=== PATIENT | male | born 1930 | race Caucasian/White ===

== ENCOUNTER 2017-02-20 12:07 | Observation (INO) | payer MEDICARE, BC ==
[2017-02-20] MEDS ORDERED: NS 0.9% 1000 ML* 1,000 ML IV ONE (14:00)
[2017-02-20 14:23] LABS: Hematocrit 35 % (42-52); Hemoglobin 11.5 g/dl (14.0-18.0); Mean Corpuscular HGB Conc 33 g/dl (31-36); Mean Corpuscular Hemoglobin 28 pg (27-31); Mean Corpuscular Volume 85 fL (80-94); Mean Platelet Volume 8 um3 (7.4-10.4); Red Blood Count 4.17 10^6/ul (4.0-5.4); Red Cell Distribution Width 14 % (10.5-15); White Blood Count 7.1 10^3/ul (3.5-10.8)
[2017-02-20 14:40] LABS: Albumin 3.8 g/dL (3.2-5.2); Calcium 8.9 mg/dL (8.6-10.3); EGFR African American 68.2 (>60); Globulin 3.2 g/dL (2-4); Magnesium 2.1 mg/dL (1.9-2.7); Potassium 4.7 mmol/L (3.5-5.0); Total Bilirubin 0.4 mg/dL (0.2-1.0); Troponin I 0.07 ng/mL (<0.04)
[2017-02-20] MEDS ORDERED: cefTRIAXone(*) 1 GM in NS 0.9% 50 ML* 50 ML IVPB ONE (14:48)
[2017-02-20] MEDS ORDERED: Aspirin TAB* 325 MG PO ONE (14:48)
[2017-02-20] MEDS ORDERED: Levofloxacin 500 MG IVPREMIX(* 500 MG/100 ML BAG IVPB ONE (15:00)
[2017-02-20 15:13] LABS: TSH (Thyroid Stimulating Horm) 3.27 mcIU/mL (0.34-5.60)
[2017-02-20 15:18] LABS: Urine Bacteria 1+ (Absent); Urine Bilirubin Negative (Negative); Urine Glucose Negative (Negative); Urine Nitrite Negative (Negative)
[2017-02-20] MEDS ORDERED: Omeprazole CAP* 20 MG PO PRN (16:15)
[2017-02-20] MEDS ORDERED: Dextrose 50% Syringe 50 ML* 25 GM/50 ML SYRINGE IV PUSH PRN (16:16)
[2017-02-20] MEDS ORDERED: Atorvastatin* 10 MG TAB PO SCH (18:00)
[2017-02-20] MEDS: Insulin LISPRO* 1 UNITS UNIT SUBCUT SCH (19:14)
[2017-02-20] MEDS: Gabapentin CAP(*) 100 MG PO SCH (21:32)
[2017-02-20] MEDS: Heparin VIAL(*) 5000 UNITS/ML VIAL (FIVE THOUSAND) SUBCUT SCH (21:33)
--- NOTE | 2017-02-21 03:19 | HP ---
CC: Álvaro Dixon MD * HISTORY AND PHYSICAL: DATE OF ADMISSION: 02/20/17 PRIMARY CARE PROVIDER: Álvaro Dixon MD ATTENDING PHYSICIAN: Mena Rothman DO * (dictated by Meena Adhikari NP) CHIEF COMPLAINT: Sudden onset of dizziness and feeling woozy. HISTORY OF PRESENT ILLNESS: Mr. Diaz is an 86-year-old male with past medical history significant for diabetes mellitus, myocardial infarction, hypertension, essential tremor and BPH who presented to the emergency room today after sudden onset of dizziness and feeling woozy. The patient [place] and felt like he may pass out, so he started to drive himself home when he decided he should stop at the emergency room due to his continuousness of feeling dizzy. The patient also reports that he saw Dr. Martell yesterday, who obtained a urine culture. He reports that he has a bladder infection and antibiotics were being called in to the pharmacy today. He denies any fevers, chills, chest pain, shortness of breath, any urinary symptoms such as dysuria. The patient presented to the emergency room for further evaluation of symptoms. While in the emergency room, the patient had an EKG showing a sinus rhythm at the rate of 58 and right bundle-branch block and PVC's. The patient had urinalysis suggestive of UTI. The patient's initial troponin was 0.07. He was noted to have an elevated creatinine of 1.28. This appears to be the patient' s baseline. Based on the patient's presentation and complaints of dizziness and findings of a urinary tract infection and elevated troponin, the hospitalists were asked to evaluate the patient for admission. PAST MEDICAL HISTORY: 1. Diabetes mellitus. 2. Myocardial infarction in 2013. 3. Hypertension. 4. Essential tremor. 5. Dysplastic nevus syndrome. 6. BPH. 7. History of broken shoulder. PAST SURGICAL HISTORY: 1. Status post amputation of right finger in 2015. 2. Status post exploratory laparotomies in 1991, 1993, and 1997. 3. Status post appendectomy in 1981. 4. Status post left total hip arthroplasty. 5. 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 HOME MEDICATIONS: Include: 1. Fish oil 1200 mg oral daily. 2. CoQ10 400 mg oral daily. 3. Multivitamin 1 tablet oral daily. 4. Nitro 0.4 mg sublingual every 5 minutes as needed for chest pain. 5. Vitamin B12 1000 mEq oral daily. 6. Vitamin B12 2000 IU daily. 7. Aspirin 81 mg oral daily. 8. Omeprazole 20 mg oral daily as needed for indigestion. 9. Gabapentin 200 mg oral twice daily. 10. Metformin 500 mg oral every evening. 11. Simvastatin 20 mg oral every evening. 12. Finasteride 10 mg oral daily. ALLERGIES: PENICILLIN. FAMILY HISTORY: The patient reports a brother with a history of coronary artery disease. He denies any family history of diabetes mellitus. The patient 's mother had a history of pancreatic cancer. In addition, a brother with a history of pancreatic cancer, a brother with bladder cancer and a brother with lung cancer. SOCIAL HISTORY: The patient is a former smoker, he quit smoking approximately 40 years and prior to that had approximately 20-year smoking history. The patient rarely drinks alcohol. He denies recreational drug use. He is . His niece, Winter Diaz, will be his surrogate decision maker in the event he is unable to make decisions for himself. Winter's phone numbers are, her home is [phone] and cell phone is [phone]. REVIEW OF SYSTEMS: I performed a 14-point review of systems. All the pertinent positives and negatives are mentioned in the history of present illness. The remaining of review of systems are negative. PHYSICAL EXAMINATION GENERAL APPEARANCE: The patient is alert, pleasant, appears to be in no acute distress. VITAL SIGNS: Temperature 99.0, heart rate 66, respiratory rate 19, O2 sat 98% on room air, blood pressure 118/71. HEENT: Normocephalic, atraumatic. Pupils are equal and reactive to light. Extraocular movements are intact. RESPIRATORY: There is no accessory muscle use and lungs are clear to auscultation bilateral. CARDIOVASCULAR: Regular rate and rhythm. S1 and S2 are present. There are no murmurs, rubs, or gallops heard. ABDOMEN: Soft, nontender, nondistended. There are bowel sounds present x4. EXTREMITIES: There is no lower extremity edema. DP and PT pulses are 2+ and symmetric. MUSCULOSKELETAL: There is no clubbing or cyanosis noted. The patient exhibits good strength in all extremities. NEUROLOGICAL: The patient is alert and oriented x4. Cranial nerves II through XII are grossly intact. The patient is noted to have a tremor in his hands. PSYCHOLOGICAL: The patient is calm and cooperative. SKIN: There are no rashes or abnormalities seen. DIAGNOSTIC STUDIES/LAB DATA: Sodium 139, potassium 4.7, chloride 104, CO2 31, BUN 23, creatinine 1.28, glucose 120. White blood cell count 7.1, hemoglobin 11.5, hematocrit 35, and platelet count 232,000. Troponin 0.07. TSH 3.27. Urinalysis significant for specific gravity of 1.003, blood 1+, leukocyte esterase 3+, wbc's 3+, rbc's 3+, bacteria 1+. EKG shows a sinus rhythm at the rate of 58 and right bundle-branch block and PVC 's. This EKG is similar to previous EKG compared to 12/10/15. IMPRESSION: Mr. Diaz is an 86-year-old male with past medical history significant for diabetes mellitus, hypertension, myocardial infarction, essential tremor, and benign prostatic hypertrophy, who presents to the emergency room with complaints of dizziness and feeling woozy and was found to have an elevated troponin and urinary tract infection. He will be admitted as an observation for elevated troponins, dizziness, and urinary tract infection. ASSESSMENT AND PLAN: 1. Dizziness. Unclear cause at this time. We will monitor the patient on telemetry. 2. Elevated troponins. The patient will be monitored on telemetry. We will trend his troponins. We will check a fasting lipid panel in the morning. The patient's SILVER score is 4. 3. Urinary tract infection. From a culture from February 19, the patient has enterococcus faecalis. He will be placed on Levaquin. 4. Chronic kidney disease, stage 3. The patient appears to be at baseline. 5. Hypertension. The patient has been hypertensive in the emergency room. He is not currently on antihypertensives. We will follow his blood pressures. If he continues to be hypertensive, we will start him on medications. 6. Benign prostatic hypertrophy. The patient will be continued on his home finasteride. 7. History of coronary artery disease. The patient will be continued on his simvastatin and aspirin. He is not currently on a beta do. 8. Fluids, electrolytes, and nutrition. The patient will be on a heart healthy diet. 9. Code status. Full code. 10. DVT prophylaxis. He is a high risk and will be placed on subcu heparin. 12. Disposition. Observation. We will rule out acute coronary syndrome and urinary tract infection. TIME SPENT: Time for this admission was approximately 60 minutes, greater than half of that was spent with the patient discussing medications, past medical history, events leading up to his arrival today, and performing a physical examination. The case has been reviewed with the attending, Dr. Rothman, who agrees with the plan of care. MEENA MARION, AUTUMN [id number]/[facility] #: [id number] JOSE
[2017-02-21 05:37] LABS: HDL Cholesterol 42.7 mg/dL
[2017-02-21] MEDS: Heparin VIAL(*) 5000 UNITS/ML VIAL (FIVE THOUSAND) SUBCUT SCH (06:07)
[2017-02-21] MEDS: Insulin LISPRO* 1 UNITS UNIT SUBCUT SCH ×2 (08:25→13:16)
[2017-02-21 08:29] LABS: Troponin I 0.12 ng/mL (<0.04)
[2017-02-21] MEDS ORDERED: Finasteride TAB* 5 MG PO SCH (09:00)
[2017-02-21] MEDS ORDERED: Cyanocobalamin TAB* 500 MCG PO SCH (09:00)
[2017-02-21] MEDS ORDERED: Aspirin Low Dose CHEW TAB* 81 MG PO SCH (09:00)
[2017-02-21] MEDS ORDERED: Multivitamins/Minerals TAB PO SCH (09:00)
[2017-02-21] MEDS: Gabapentin CAP(*) 100 MG PO SCH (09:28)
--- NOTE | 2017-02-21 09:37 | PN ---
Subjective Date of Service: 02/21/17 Interval History: Patient seen this morning. Feels well. No further symptoms of dizziness since arriving to the ED. Denies any chest pain or SOB. Was told by Dr. Martell that he was retaining urine at the last appointment and sample cultured growing Enterococcus >100K. No dysuria or increased frequency. Has been eating and drinking well here. States his previous NV presented with significant chest pain that woke him from sleep. Family History: Unchanged from Admission Social History: Unchanged from Admission Past Medical History: Unchanged from Admission Objective Active Medications: Aspirin (Aspirin Low Dose Tab*) 81 mg PO DAILY [facility] Atorvastatin Calcium (Lipitor*) 10 mg PO QPM [facility] Cyanocobalamin (Vitamin B12 Tab*) 1,000 mcg PO DAILY [facility] Dextrose (D50w Syringe 50 Ml*) 12.5 gm IV PUSH .FOR FS < 60 - SS PRN Finasteride (Proscar Tab*) 5 mg PO DAILY [facility] Gabapentin (Neurontin Cap(*)) 200 mg PO BID [facility] Heparin Sodium (Porcine) (Heparin Vial(*)) 5,000 units SUBCUT Q8HR [facility] Levofloxacin/Dextrose (Levaquin 250 Mg Ivpremx(*)) 250 mg in 50 mls @ 50 mls/ hr IVPB Q24H [facility] Insulin Human Lispro (Humalog*) 0 - 5 units SUBCUT AC [facility] Multivitamins/Minerals (Theragran/Minerals Tab*) 1 tab PO DAILY [facility] Omeprazole (Prilosec Cap*) 20 mg PO DAILY PRN Vital Signs 02/20/17 02/20/17 02/20/17 15:30 16:00 16:50 Temperature 98.1 F Pulse Rate 59 56 Respiratory 19 26 18 Rate Blood Pressure 181/71 172/64 172/78 (mmHg) O2 Sat by Pulse 97 97 Oximetry 02/21/17 02/21/17 02/21/17 04:00 04:16 05:00 Temperature 98.1 F Pulse Rate 51 Respiratory 25 16 14 Rate Blood Pressure 153/70 (mmHg) O2 Sat by Pulse 94 Oximetry 02/21/17 02/21/17 02/21/17 06:00 07:00 07:27 Temperature 97.9 F Pulse Rate 51 Respiratory 17 17 16 Rate Blood Pressure 157/70 (mmHg) O2 Sat by Pulse 95 Oximetry Oxygen Devices in Use Now: None Appearance: Elderly, M, laying in bed in NAD Eyes: No Scleral Icterus Ears/Nose/Mouth/Throat: Mucous Membranes Moist Neck: NL Appearance and Movements; NL JVP Respiratory: Symmetrical Chest Expansion and Respiratory Effort, Clear to Auscultation Cardiovascular: - - Bradycardic, mild ALDAIR Abdominal: NL Sounds; No Tenderness; No Distention Lymphatic: No Cervical Adenopathy Extremities: No Edema Skin: No Rash or Ulcers Neurological: Alert and Oriented x 3, - - tremor Result Diagrams: 02/20/17 13:37 02/20/17 13:37 Assess/Plan/Problems-Billing Assessment: Episode of lightheadedness in an 86 yo M found to have UTI and troponin elevation with a PMH of BPH, HTN, NV, bradycardia, tremor - Patient Problems (1) UTI (urinary tract infection) Current Visit: Yes Comment: Enterococcus > 100K on recent outpatient culture. No dysuria but was reportedly having urinary retention. Continue Levaquin for now with PCN allergy. (2) Elevated troponin Current Visit: Yes Comment: Peaked at 0.13. No chest pain. No significant events on tele other than known bradycardia. May be demand mediated from bradycaria vs UTI. Dr. Neri to see. (3) Light headedness Current Visit: Yes Comment: ?due to UTI vs bradycardia. Symptoms seemed to have resolved. Will ambulate the patient today. (4) BPH (benign prostatic hyperplasia) Current Visit: Yes Comment: Continue finasteride (5) CAD (coronary artery disease) Current Visit: No Comment: Troponin elevation as above, for now continue Aspirin and Atorvastatin. BPs trending back down (6) CKD (chronic kidney disease) stage 3, GFR 30-59 ml/min Current Visit: Yes Comment: Creatinine at baseline (7) Type 2 diabetes mellitus Current Visit: No Comment: Continue Lispro SS. (8) DVT prophylaxis Current Visit: No Status: Acute Code(s): [id number] - SNOMED Code(s): 420801666 Comment: SQ heparin.
--- NOTE | 2017-02-21 11:19 | CONSULT ---
Subjective Date of Service: 02/21/17 Interval History: Date of admission 02/20/2017 Consult 02/21/2017 Primary Care Physician: Álvaro Dixon MD Eating Disorder Specialist: Dr. Grover Service: Hospitalist CC: Lightheadedness, presyncope Reason for consult: Abnormal troponin HPI: Mr. Diaz is an 86 year old man with a history of CAD s/p [place], known trifascicular with symptomatic bradycardia in 2015 at which time propanolol ( used for tremor) was stopped at that time. He was being followed by Dr. Grover with the anticipation that he would eventually require a pacemaker. Patient's in November. He actually had an episode of self-limited lightheadedness shortly after that probably in early December. He went to get something to eat and attributed the improvement of symptoms to food. He neglected to tell Dr. Grover this at an appointment earlier this month. He was at the [facility] yesterday standing in line when he had the sudden onset of "woozy" and lightheaded. There was no spinning sensation. He felt like he might pass out and had to sit down. There was no chest pain. He does not recall a change in breathing. Because he felt food had helped the symptoms last month he got in his car to drive while feeling extremely lightheaded and was driving to [employer] to get something to eat. His symptoms became so bad that he instead drove up to [facility]. This episode was much more severe than the one about 2 months ago. By the time he was connected to our monitoring his symptoms had resolved and did not return. He thinks the entire episode lasted 20 minutes or so. EKG here showed sinus bradycardia 58 bpm, RBBB with a LAFB and 1 AVB with a PVC. Telemetry overnight showed non-conducted p waves a times. EKG today showed sinus bradycardia 56 bpm, similar EKG except right precordial leads looks like they were placed in a different position. He has had no syncope. He had a urinalysis at Dr. Martell's office yesterday and was to start antibiotics for a UTI once cultures obtained. He denies any urinary symptoms. There is no fever or leukocytosis. His lab work showed a normal glucose and a creatinine was stable not suggestive of significant dehydration. His is receiving antibiotics for UTI. PAST MEDICAL HISTORY: 1. Diabetes mellitus. 2. Myocardial infarction in 2013. 3. Hypertension. 4. Essential tremor. 5. Dysplastic nevus syndrome. 6. BPH. 7. History of broken shoulder. PAST SURGICAL HISTORY: 1. Status post amputation of right finger in 2015. 2. Status post exploratory laparotomies in 1991, 1993, and 1997. 3. Status post appendectomy in 1981. 4. Status post left total hip arthroplasty. 5. 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 ALLERGIES: PENICILLIN. FAMILY HISTORY: The patient reports a brother with a history of coronary artery disease. He denies any family history of diabetes mellitus. The patient's mother had a history of pancreatic cancer. In addition, a brother with a history of pancreatic cancer, a brother with bladder cancer and a brother with lung cancer. SOCIAL HISTORY: The patient is a former smoker, he quit smoking approximately 40 years and prior to that had approximately 20-year smoking history. The patient rarely drinks alcohol. He denies recreational drug use. He is . His niece, Winter Diaz, will be his surrogate decision maker in the event he is unable to make decisions for himself. Winter's phone numbers are, her home is [phone] and cell phone is [phone]. Medications Active Medications: Aspirin (Aspirin Low Dose Tab*) 81 mg PO DAILY [facility] Last Admin: 02/21/17 09:28 Dose: 81 mg Atorvastatin Calcium (Lipitor*) 10 mg PO QPM [facility] Last Admin: 02/20/17 18:10 Dose: 10 mg Cyanocobalamin (Vitamin B12 Tab*) 1,000 mcg PO DAILY [facility] Last Admin: 02/21/17 09:28 Dose: 1,000 mcg Dextrose (D50w Syringe 50 Ml*) 12.5 gm IV PUSH .FOR FS < 60 - SS PRN PRN Reason: FS < 60 Finasteride (Proscar Tab*) 5 mg PO DAILY [facility] Last Admin: 02/21/17 09:28 Dose: 5 mg Gabapentin (Neurontin Cap(*)) 200 mg PO BID [facility] Last Admin: 02/21/17 09:28 Dose: 200 mg Heparin Sodium (Porcine) (Heparin Vial(*)) 5,000 units SUBCUT Q8HR [facility] Last Admin: 02/21/17 06:07 Dose: 5,000 units Levofloxacin/Dextrose (Levaquin 250 Mg Ivpremx(*)) 250 mg in 50 mls @ 50 mls/ hr IVPB Q24H [facility] Insulin Human Lispro (Humalog*) 0 - 5 units SUBCUT AC [facility] PRN Reason: Protocol Last Admin: 02/21/17 08:25 Dose: Not Given Multivitamins/Minerals (Theragran/Minerals Tab*) 1 tab PO DAILY [facility] Last Admin: 02/21/17 09:28 Dose: 1 tab Omeprazole (Prilosec Cap*) 20 mg PO DAILY PRN PRN Reason: INDIGESTION Home Medications: Aspirin Low Dose CHEW TAB* [Aspirin Low Dose TAB*] 81 mg PO DAILY 01/09/16 [ History Confirmed 02/20/17] Cholecalciferol [Vitamin D3] 2,000 unit PO DAILY 01/09/16 [History Confirmed ] Cyanocobalamin TAB* [Vitamin B12 TAB*] 1,000 mcg PO DAILY 01/09/16 [History Confirmed 02/20/17] Gabapentin CAP(*) [Neurontin 100 mg CAP(*)] 200 mg PO BID 01/09/16 [History Confirmed 02/20/17] Omeprazole CAP* [Prilosec CAP* 20 MG] 20 mg PO DAILY PRN 01/09/16 [History Confirmed 02/20/17] Simvastatin TAB(NF) [Zocor 20 MG (NF)] 20 mg PO QPM 01/09/16 [History Confirmed 02/20/17] metFORMIN* [Glucophage 500 MG TAB *] 500 mg PO QPM 01/09/16 [History Confirmed 02/20/17] Coenzyme Q10 (Ubidecarenone) [Co Q-10] 400 mg PO DAILY 02/20/17 [History Confirmed 02/20/17] Finasteride TAB* [Proscar TAB*] 5 mg PO DAILY 02/20/17 [History Confirmed ] Multivitamins/Minerals TAB* [Theragran/minerals TAB*] 1 tab PO DAILY 02/20/17 [ History Confirmed 02/20/17] Nitroglycerin TAB 0.4 MG* 0.4 mg SL Q5M PRN 02/20/17 [History Confirmed 02/20/17 ] [place]-3 Fatty Acids (Nf) [Fish Oil (NF)] 1,200 mg PO DAILY 02/20/17 [History Confirmed 02/20/17] Review of Systems - Measurements Intake and Output: Intake and Output Last 24 Hours 02/19/17 02/20/17 02/21/17 02/22/17 06:59 06:59 06:59 06:59 Intake Total 325 590 Output Total 1250 600 Balance -925 -10 Weight 174 lb Intake: IVPB 125 Oral 200 590 Output: Urine 1250 600 Other: # Bowel Movements 0 - Review of Systems Constitutional Symptoms: Negative: Weight Gain, Weight Loss, Fatigue, Fever, Unexplained Falls Dermatology: Negative: Rash, Skin Lesions HEENT: Negative: Change in Hearing, Vertigo Eyes: Negative: Change in Vision, Double Vision Thyroid: Negative: Cold Intolerance, Heat Intolerance, Tremor, Frequent Defecation, Constipation, Palpitations, Primary Hypothyroidism, Primary Hyperthyroidism, Weight Loss, Weight Gain Pulmonary: Negative: Cough, Sputum, Hemoptysis, Wheezing, Respiratory Distress Cardiology: Positive: Faintness Negative: Chest Pain, Shortness of Breath, Palpitations, Swelling of Ankles, Peripheral Vascular Dis, Edema, Syncope, Claudication, Paroxysmal Nocturnal Dyspnea, Orthopnea Gastroenterology: Negative: Abdominal Pain, Nausea, Vomiting, Anorexia, Indigestion, Difficulty Swallowing, Heartburn, Constipation, Diarrhea, Haematemesis, Melena Genital - Urinary: Negative: Dysuria, Hematuria Musculoskeletal: Negative: Joint Pain, Joint Stiffness, Arthritis, Osteoporosis, Low Back Pain , Sciatica, Joint Deformities, Kyphoscoliosis, Other Endocrinology: Negative: Thyroid Problems, Obesity, Diabetes, Calluses, Polydipsia, Polyuria Hematologic/Lymphatic: Negative: Anemia, Easy Brusing, Hx Leukemia, Hx Lymphoma Neurology: Positive: Dizziness Negative: Headaches, Migraines, Change in Vision, Diplopia, Change in Balancing, Change in Coordination, Change in Memory, Change in Speech, Change in Sphincter Function, Change in Walking, Hx of Stroke\\TIA, Hx Seizures Psychiatry: Negative: Depressed Mood, Unusual Fatigue, Unusual Anxiety Allergic/Immunologic: Negative: Hx HIV, Immunocompromise Review of Systems Statement: All other review of systems negative, unless stated above. Objective Vital Signs: Temp Pulse Resp BP Pulse Ox 97.9 F 51 18 157/70 95 02/21/17 07:27 02/21/17 07:27 02/21/17 09:28 02/21/17 07:27 02/21/17 07:27 Oxygen Devices in Use Now: None Appearance: nad, pleasant Ears/Nose/Mouth/Throat: Clear Oropharnyx Neck: NL Appearance and Movements; NL JVP Respiratory: Symmetrical Chest Expansion and Respiratory Effort, Clear to Auscultation Cardiovascular: NL Sounds; No Murmurs; No JVD, RRR, No Edema Abdominal: NL Sounds; No Tenderness; No Distention Extremities: No Edema Skin: No Rash or Ulcers Neurological: Alert and Oriented x 3, - - + tremor Laboratory Results: 02/20/17 13:37 02/20/17 13:37 Total Bilirubin 0.40 mg/dL (0.2-1.0) 02/20/17 13:37 AST 27 U/L (13-39) 02/20/17 13:37 ALT 21 U/L (7-52) 02/20/17 13:37 Alkaline Phosphatase 68 U/L (34-104) 02/20/17 13:37 Total Protein 7.0 g/dL (6.4-8.9) 02/20/17 13:37 Albumin 3.8 g/dL (3.2-5.2) 02/20/17 13:37 Globulin 3.2 g/dL (2-4) 02/20/17 13:37 Albumin/Globulin Ratio 1.2 (1-3) 02/20/17 13:37 Triglycerides 93 mg/dL 02/21/17 04:56 Cholesterol 124 mg/dL 02/21/17 04:56 LDL Cholesterol 63 mg/dL 02/21/17 04:56 HDL Cholesterol 42.7 mg/dL 02/21/17 04:56 TSH 3.27 mcIU/mL (0.34-5.60) 02/20/17 13:37 02/20/17 02/20/17 02/20/17 13:37 16:49 19:43 Troponin I 0.07 H* 0.09 H* 0.10 H* 02/20/17 02/21/17 22:42 04:56 Troponin I 0.13 H* 0.12 H* Diagnostic Imaging: Echocardiogram - (01/31/2014 - Normal LV function EF 68% Mild AR and MR Trace TR) Exercise Nuclear Stress Test - (03/20/2005 - Exercised for 10 min Normal perfusion Normal LV function EF 72% TID 0.83) Holter Monitor - (01/08/2016 - NSR HR down to 35 bpm at night Longest pause was 3 sec at night. No significant bradycardia while awake, Lexiscan Stress Test - (02/02/2014 - Small/moderate partial thickness infarct of inferior wall. Normal LV function EF 64% TID: 0.97) Assessment/Plan Mr. 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 Telemetry overnight with non-conducted p waves. Asymtpomatic now. No AV gloria agents. Being treated for UTI I think unlikely (directly) related to current event. No syncope. Mildly elevated troponin very likely due to coronary underperfusion during a self-limited symptomatic bradycardia episode. Patient requests to go home at this time. Episode very likely related to symptomatic bradycardia given his history. Permanent dual chamber cardiac pacemaker recommended. Patient agrees to not drive for a short period of time until the pacemaker is placed and he is recovered. He is absolutely not to drive until pacemaker is placed and he and niece at bedside are agreeable to this and she will drive him for now. We discussed situations in which he should call 911 for. Will arrange pacemaker 02/25/[address] Kary Cheema as an outpatient. May restart propanolol afterwards. Thank you for allowing me to participate in the cardiovascular care of this patient. Please do not hesitate to contact me with questions or concerns.
[2017-02-21 11:53] VITALS: BP 158/92
[2017-02-21] MEDS ORDERED: Levofloxacin 500 MG IVPREMIX(* 500 MG/100 ML BAG IVPB SCH (15:00)
[2017-02-21] MEDS ORDERED: Levofloxacin 250 MG IVPREMX(*) 250 MG/50 ML BAG IVPB SCH (17:00)
--- NOTE | 2017-02-22 09:55 | DS ---
CC: Álvaro Dixon MD; Dr. Saulo Grover; Dr. Kary Cheema DISCHARGE SUMMARY: DATE OF ADMISSION: 02/20/17 DATE OF DISCHARGE: 02/21/17 PRIMARY CARE PROVIDER: Álvaro Dixon MD. PRINCIPAL DISCHARGE DIAGNOSES: 1. Lightheadedness/presyncope. 2. Bradycardia. 3. Bacteriuria. SECONDARY DIAGNOSES: 1. Diabetes. 2. History of myocardial infarction. 3. Hypertension. 4. Tremor. 5. Benign prostatic hypertrophy. DISCHARGE MEDICATION REGIMEN: 1. Ciprofloxacin 500 mg by mouth 2 times daily. 2. Finasteride 5 mg by mouth daily. 3. Simvastatin on hold until ciprofloxacin is completed. 4. Metformin 500 mg by mouth nightly. 5. Gabapentin 200 mg by mouth 2 times daily. 6. Omeprazole by mouth daily as needed for reflux. 7. Aspirin 81 mg by mouth daily. 8. Vitamin D3 2000 units by mouth daily. 9. Vitamin B12 1000 mcg by mouth daily. 10. Nitroglycerin 0.4 mg sublingual every 5 minutes as needed for chest pain. 11. Multivitamin one tablet by mouth daily. 12. Coenzyme-Q 400 mg by mouth daily. 13. [place]-3 fatty acids 1200 mg by mouth daily. CONSULTANTS DURING HOSPITALIZATION: Rk Neri DO, Cardiology. HISTORY OF PRESENT ILLNESS AND HOSPITAL SUMMARY: Please see the full history and physical by Katherin Antonio NP, for full details. Briefly, Mr. Diaz is an 78-year-old male with a past medical history as above, who presented to the hospital after he had an episode of lightheadedness a nd presyncope while standing in line at the [employer]. He had no associated chest pain or shortness of br eath. In the emergency department, he had an initial EKG that shows sinus bradycardia, right bundle branch block and left anterior fascicular block. It was not new. He was noted to have mildly elev ated troponin of 0.07, which peaked at 0.13. Throughout the hospitalization, he remained asymptomat ic as far as chest pain went and his lightheadedness resolved in the emergency department and did no t return. The patient recently was diagnosed with urinary tract infection by Urology and had urine culture growing Enterococcus faecalis on 02/19/17 and had not yet started antibiotics. Due to the troponin elevation and bradycardia and the patient's history, Dr. Rk Neri of Cardiol [facility] was consulted. He felt that the patient's presyncopal symptoms may have been due to his bradyca rdia and recommends that the patient sees Cardiology this upcoming week for consideration of pacemak er placement. I agree with Dr. Neri's assessment. I am unclear if the patient has an active urin kartik tract infection. However, it seems that he was having some urinary retention based on his repor t of his recent Urology appointment. So, we will proceed to treat the patient's infection with cipr ofloxacin as he has a PENICILLIN allergy. The patient was instructed to hold the simvastatin while on the fluoroquinolone and can resume it once the antibiotic course was completed. TIME SPENT: Total time spent on this discharge was 60 minutes. This is a summary of the hospitalization, please see the full medical record for further details. [id number]/[facility] #: [id number]
== END 2017-02-21 14:40 | disposition home or self-care (01) ==
LOC: ED 12:07 → MEDTELE 15:00
PROVIDERS: ADMIT Hospitalist; ATTEND Hospitalist
DX: R55 Syncope and collapse (principal); R42 Dizziness and giddiness; R00.1 Bradycardia, unspecified; R82.71 Bacteriuria; E11.9 Type 2 diabetes mellitus without complications; N40.0 Benign prostatic hyperplasia without lower urinary tract symptoms; I25.2 Old myocardial infarction; R25.1 Tremor, unspecified; I12.9 Hypertensive chronic kidney disease with stage 1 through stage 4 chronic kidney disease, or unspecified chronic kidney disease; N18.3 Chronic kidney disease, stage 3 (moderate); R74.8 Abnormal levels of other serum enzymes; Z79.84 Long term (current) use of oral hypoglycemic drugs; Z79.899 Other long term (current) drug therapy; Z87.891 Personal history of nicotine dependence; I45.2 Bifascicular block
CPT/HCPCS: 36415; 80053; 80061; 81003; 81015; 83036; 83605; 83735; 84443; 84484; 85025; 87086; 93005; 96365; 96372; 96375; 99283; A9270-GY; G0378; J0696; J1644; J1956

== ENCOUNTER 2017-02-26 07:02 | Observation (INO) | payer MEDICARE, BC ==
[2017-02-26] MEDS ORDERED: Clindamycin 900 MG IVPREMIX(* 900 MG/50 ML SDV IV ONE (08:00)
[2017-02-26] MEDS ORDERED: Diazepam TAB(*) 5 MG ONE (08:12)
[2017-02-26] MEDS ORDERED: fentaNYL* 50 MCG/ML 2 ML VIAL (100 MCG VIAL) ONE (08:18)
[2017-02-26] MEDS ORDERED: Lidocaine 1% INJ* 10 MG/ML 30 ML SDV ONE ×2 (08:19→09:14)
[2017-02-26] MEDS ORDERED: Midazolam* 1 MG/ML 5 ML VIAL (5 MG) ONE (08:19)
[2017-02-26] MEDS ORDERED: Iohexol 300 (CONTRAST) 10 ML SDV ONE (08:45)
[2017-02-26] MEDS ORDERED: Acetaminophen TAB* 325 MG PO PRN (10:16)
[2017-02-26] MEDS ORDERED: Nitroglycerin TAB 0.4 MG* 0.4 MG TAB SL PRN (11:00)
[2017-02-26] MEDS ORDERED: Omeprazole CAP* 20 MG PO PRN (11:00)
[2017-02-26] MEDS: Ciprofloxacin TAB* 500 MG PO SCH ×2 (11:48→20:44)
[2017-02-26] MEDS: Gabapentin CAP(*) 100 MG PO SCH ×2 (11:48→20:41)
[2017-02-26] MEDS: Aspirin Low Dose CHEW TAB* 81 MG PO SCH (11:48)
[2017-02-26] MEDS: Finasteride TAB* 5 MG PO SCH (11:48)
--- NOTE | 2017-02-26 12:46 | RAD ---
INDICATION: Status post device implant. COMPARISON: Comparison is made with a prior chest x-ray study from April 09, 2016. TECHNIQUE: A portable view of the chest was obtained. FINDINGS: The patient is status post placement of a transvenous dual-chamber cardiac pacemaker. The heart is within normal limits in size. The lungs are clear. No pneumothorax is seen. There is mild blunting of the right costophrenic angle which is unchanged suggestive of pleural thickening. IMPRESSION: STATUS POST CARDIAC PACEMAKER PLACEMENT, NO EVIDENCE FOR ACUTE FINDING.
[2017-02-26] MEDS ORDERED: Atorvastatin* 10 MG TAB PO SCH (18:00)
[2017-02-26] MEDS ORDERED: metFORMIN* 500 MG TAB PO SCH (18:00)
--- NOTE | 2017-02-27 05:46 | OP ---
CC: Saulo Grover MD; Álvaro Dixon MD * PACEMAKER IMPLANTATION: DATE OF OPERATION: 02/26/17 - ROOM #[id number] DATE OF : [birth year] SURGEON: Kary Cheema MD ANESTHESIA: MAC. PRE-OP DIAGNOSIS: Symptomatic sick sinus syndrome. POST-OP DIAGNOSIS: Symptomatic sick sinus syndrome. OPERATIVE PROCEDURE: Pacemaker implantation. ESTIMATED BLOOD LOSS: Less than 5 mL. COMPLICATIONS: None. INDICATIONS: The indications, risks and benefits of the procedure have been discussed with the patient, with Dr. Neri, I again reviewed these with the patient and his niece on the morning of the procedure. He was amenable to proceeding. DESCRIPTION OF PROCEDURE: The patient is right-handed and left subclavian fossa was prepped and draped in the usual sterile fashion and a time-out procedure was called. The patient received 10 cc of radiopaque dye in the left upper extremity outlying the left axillary and left subclavian vein. Following this, the patient received a total of 20 cc of 1% lidocaine for local anesthesia and additionally received 4 mg of Versed and 50 mcg of Fentanyl for sedation. Following the lidocaine, using a 10-blade knife, a 2.5 cm incision was made in the left subclavian fossa and using Bovie and blunt dissection was extended to the level of the pectoralis muscle. After additional lidocaine was infused inferiorly and medially, using blunt dissection, a small pocket was made. Using a modified Seldinger technique, the left subclavian vein was cannulated and using fluoroscopic guidance, the guidewire was advanced to the superior vena cava. This procedure was repeated with a second wire. Using an introducer technique, the right ventricular lead was guided into the right ventricular apex. I went in the coronary sinus initially, the first location had poor thresholds and active fixation lead was retracted and repositioned, actively fixed and placed with good pacing and sensing thresholds. Using a second guidewire and an introducer technique, the atrial lead was guided into the right atrial appendage actively fixed in place with good pacing and sensing thresholds. The leads were then advanced carefully as there was a lot of redundant tortuosity to the superior vena cava. The leads were then sutured to the pocket using 0 silk suture and the leads and pocket were copiously irrigated with normal saline. The leads were then attached to the generator. The generator was placed in the pocket and the incision was closed using 2 layers of absorbable suture, 2-0 followed by 4- 0 followed by sonali and an external dressing. FINDINGS: The system is an MRI compatible system. The device is a MedLEYIO model A2DR01, serial number [id number]. The atrial lead is a Medtronic model 5076-52, serial number [id number], P waves were sensed at 3.6 millivolts, the atrial lead impedance of 602 ohms and the atrial pacing threshold of 1.2 volts at 0.5 milliseconds. The ventricular lead is a Medtronic model 5076- 58 serial number [id number] with R-waves sensed at 8.2 millivolts and ventricular lead impedance of 725 ohms and the ventricular pacing threshold of 0.3 volts at 0.5 milliseconds. The patient was hemodynamically stable throughout the procedure. There were no complications during the procedure and the patient was stable during recovery and on transfer to the floor. [id number]/[facility] #: [id number] JOSE
[2017-02-27] MEDS: Gabapentin CAP(*) 100 MG PO SCH (09:07)
[2017-02-27] MEDS: Finasteride TAB* 5 MG PO SCH (09:08)
[2017-02-27] MEDS: Aspirin Low Dose CHEW TAB* 81 MG PO SCH (09:09)
[2017-02-27] MEDS: Ciprofloxacin TAB* 500 MG PO SCH (09:10)
[2017-02-27 12:06] VITALS: BP 157/73
--- NOTE | 2017-02-27 13:43 | RAD ---
Indication: Pacemaker placement. 2 views of the chest including dual energy PA views demonstrate no mediastinal shift. Pacemaker leads are in place. No pneumothorax is noted. No pleural fluid is identified. IMPRESSION: Pacemaker leads are in place. No pneumothorax is noted. Minimal basilar atelectasis is present.
--- NOTE | 2017-03-19 12:16 | DS ---
CC: Dr. Saulo Grover; Dr. Álvaro Dixon DISCHARGE SUMMARY: DATE OF ADMISSION: 02/26/17 DATE OF DISCHARGE: 02/27/17 HISTORY OF PRESENT ILLNESS: Please see Dr. Neri's recent consultation note from late January. The [place] huitron had become near syncopal at the [facility] and had another similar episode a month ago. He drove hi mself to the emergency department and was found to have nonconducted P waves and bradycardia. He wa s stabilized and discharged and brought back in for a dual-chamber pacemaker implantation. His beta blockers (used for tremor) have been held. The patient underwent implantation of an MRI compatible dual-chamber pacemaker 02/26/17 (Medtronic) without complications. The next day, the patient felt well, had no complaints of dizziness and moisés ed any shortness of breath, chest pain or exercise intolerance. Chest x-rays from 02/26 and 02/27 showed no evidence of pneumothorax and good lead placement. Pacemaker interrogation on the day of discharge, 02/27/17, confirmed his Medtronic device (model A2D R01). He was programmed in AAIR/DDDR with a low rate of 60 beats per minute. At interrogation, P w aves were sensed at 2.9 millivolts with an atrial lead impedance of 361 ohms and a ventricular pacin g threshold of 0.75 volts at 0.4 milliseconds. R waves are sensed at 7.6 millivolts with a ventricu lar impedance of 532 ohms and a ventricular pacing threshold of 0.5 volts at 0.4 milliseconds. Prior to that in DDD mode, he was atrially paced 85% of the time and ventricularly paced 83% of the time. DISCHARGE MEDICATIONS: The patient was discharged on: 1. Clindamycin 150 mg t.i.d. 2. Tylenol p.r.n. 3. Omeprazole 20 mg a day. 4. Neurontin 200 mg b.i.d. 5. Metformin 500 mg q.h.s. 6. Vitamin B12 at 1000 mg a day. 7. Vitamin D3 at 2000 mg a day. 8. Aspirin 81 mg a day. 9. [place]-3 fish oil 1200 mg b.i.d. 10. Coenzyme Q 400 mg a day. 11. Multi-Glenis. 12. Sublingual nitroglycerin. 13. Finasteride 5 mg a day. 14. Simvastatin 20 mg a day. 15. Cinnamon. DISCHARGE INSTRUCTIONS: He was provided with written and verbal instructions for care of his pacema ker and arrangements were made for him to follow up in 1 week's time for a wound check. PROBLEM LIST/PAST MEDICAL HISTORY: Includes, 1. High-degree heart block with intermittent second-degree heart block in the past. 2. Sinus bradycardia. 3. Dyslipidemia. 4. Diabetes. 5. Right bundle-branch block, left anterior fascicular block. [id number]/[facility] #: [id number]
== END 2017-02-27 16:17 | disposition home or self-care (01) ==
LOC: CHICATH 07:02 → MEDTELE 10:16
PROVIDERS: ADMIT Specialist; ATTEND Specialist
DX: I49.5 Sick sinus syndrome (principal); Z79.82 Long term (current) use of aspirin; E11.9 Type 2 diabetes mellitus without complications; Z79.84 Long term (current) use of oral hypoglycemic drugs; I45.10 Unspecified right bundle-branch block; R94.31 Abnormal electrocardiogram [ECG] [EKG]; I25.10 Atherosclerotic heart disease of native coronary artery without angina pectoris; I25.2 Old myocardial infarction; I10 Essential (primary) hypertension; Z87.891 Personal history of nicotine dependence
CPT/HCPCS: 33208; 71010; 71020; 93005; 99156; 99157; A9270-GY; C1785; C1898; G0378; J2001; J2250; J3010; Q9967

== ENCOUNTER 2017-04-07 20:59 | Observation (INO) | payer BC, MEDICARE ==
[2017-04-07 21:47] LABS: Hematocrit 33 % (42-52); Hemoglobin 10.9 g/dl (14.0-18.0); Mean Corpuscular HGB Conc 33 g/dl (31-36); Mean Corpuscular Hemoglobin 27 pg (27-31); Mean Corpuscular Volume 82 fL (80-94); Mean Platelet Volume 8 um3 (7.4-10.4); Red Blood Count 4.09 10^6/ul (4.0-5.4); Red Cell Distribution Width 17 % (10.5-15); White Blood Count 6.5 10^3/ul (3.5-10.8)
--- NOTE | 2017-04-07 21:53 | RAD ---
INDICATION: Chest pain COMPARISON: Chest x-ray 4 2016 TECHNIQUE: An AP portable view obtained at 2151 hours is submitted. FINDINGS: Bones/Soft Tissues: There are no acute bony findings. There is a left-sided cardiac pacemaker Cardiomediastinal: The cardiomediastinal silhouette is normal. Lungs: There are no infiltrates. There is mild hyperinflation. Pleura: There are no pleural effusions. Other: None IMPRESSION: CARDIAC PACEMAKER. NO ACTIVE DISEASE
[2017-04-07] MEDS: NS 0.9% 1000 ML* 1,000 ML IV SCH (21:56)
[2017-04-07 22:20] LABS: BUN/Creatinine Ratio 21.6 (8-20); C Reactive Protein 1.15 mg/L (< 5.00); EGFR Non-African American 48.2 (>60); Globulin 2.8 g/dL (2-4); Magnesium 2.1 mg/dL (1.9-2.7); Potassium 4.5 mmol/L (3.5-5.0); Total Bilirubin 0.5 mg/dL (0.2-1.0); Total Protein 6.8 g/dL (6.4-8.9); Troponin I 0.06 ng/mL (<0.04)
[2017-04-07 22:31] LABS: TSH (Thyroid Stimulating Horm) 2.45 mcIU/mL (0.34-5.60)
[2017-04-07] MEDS ORDERED: Iodixanol* (CONTRAST) 320 MG/ML 100 ML SDV IV ONE (23:09)
[2017-04-08 01:53] LABS: Urine Bacteria 1+ (Absent); Urine Bilirubin Negative (Negative); Urine Glucose Negative (Negative); Urine Nitrite Negative (Negative)
--- NOTE | 2017-04-08 02:59 | HP ---
H&P (Free Text) History and Physical: PCP: Akil Dixon MD Date/Time: 04/08/2017 0345 CC: spinning dizziness HPI: Mr Diaz is an 86YO male who underwent MRI compatible dual chamber pacer placement 02/26/2017 for similar symptoms after being found to have episodes of non-conducted P-waves and 2nd degree AV block. He has been doing well up until Thursday after eating breakfast at [email or web address] when he suddenly developed spinning dizziness that gradually spontaneously resolved over an hour. This was associated with SOB, but no chest pain, N/V, sweats, palpitations, F/C, cough, congestion, or other issues. He was at Dr Grover's office yesterday where a cad technician performed a pacer check informing him it was working well. He informed the tech of his symptom and an appointment to see Dr Grover was made for today at noon. He presents as he was advised to come to the ED for dizziness , chest pain, SOB, etc. Tonight he began experiencing sharp shooting non- exertional L chest pains prompting him to present. Additionally, he states that yesterday AM he developed shortness of breath while working in his garden without other associated symptoms. While in the ED, his HR was seen to drop into the mid-50s despite report his pacer was set at 60. Family stated that the monitor had dropped as low as 42 bpm. PMedHx DM2 CAD/IL COPD bradycardia s/p pacer 02/26/2017 nephrolithiasis cholelithiasis HTN dysplastic nevus syndrome essential tremor BPH Ambulatory Orders Aspirin Low Dose CHEW TAB* [Aspirin Low Dose TAB*] 81 mg PO DAILY 01/09/16 Cholecalciferol [Vitamin D3] 2,000 unit PO DAILY 01/09/16 Cyanocobalamin TAB* [Vitamin B12 TAB*] 1,000 mcg PO DAILY 01/09/16 Gabapentin CAP(*) [Neurontin 100 mg CAP(*)] 200 mg PO BID 01/09/16 Omeprazole CAP* [Prilosec CAP* 20 MG] 20 mg PO DAILY PRN 01/09/16 metFORMIN* [Glucophage 500 MG TAB *] 500 mg PO QPM 01/09/16 Coenzyme Q10 (Ubidecarenone) [Co Q-10] 400 mg PO DAILY 02/20/17 Finasteride TAB* [Proscar TAB*] 5 mg PO DAILY 02/20/17 Multivitamins/Minerals TAB* [Theragran/minerals TAB*] 1 tab PO DAILY 02/20/17 Nitroglycerin TAB 0.4 MG* 0.4 mg SL Q5M PRN 02/20/17 [place]-3 Fatty Acids (Nf) [Fish Oil (NF)] 1,200 mg PO BID 02/20/17 Simvastatin TAB(NF) [Zocor 20 MG (NF)] 20 mg PO QPM #0 02/21/17 Cinnamon 500 mg PO DAILY 02/25/17 Acetaminophen TAB* [Tylenol TAB*] 650 mg PO Q4H PRN #0 tab 02/27/17 Meloxicam [Mobic] 15 mg PO DAILY 04/07/17 Allergies Penicillins [PCN] Allergy (Verified 04/07/17 21:11) Unknown Reaction Details PSurgHx pacer placement R distal phalanx amputation exploratory laparotomies x3 appendectomy L GIOVANNI acetabular FX repair SocHx: former smoker quit ~40 years ago w/ ~20PYHX, rare alcohol, no recreational drugs; , lives alone FamHx: positive for CAD, HTN, lung CA, bladder CA, & pancreatic CA ROS: as above, otherwise reviewed and all were negative vitals: Vital Signs Temp 37.1 C 04/08/17 07:43 Pulse 58 04/08/17 07:43 Resp 16 04/08/17 07:43 BP 153/81 04/08/17 07:43 Pulse Ox 96 04/08/17 07:43 Intake & Output 04/07/17 04/07/17 04/08/17 11:59 23:59 11:59 Intake Total 1000 0 Balance 1000 0 Weight 74.843 kg 77.111 kg Intake: IV Fluids 1000 Oral 0 Other: # Bowel Movements 0 # Voids 0 Constitutional: NAD, normally developed, well-nourished elderly white male HEENM: atraumatic; sclera/conjunctiva: non-icteric/clear; hearing: clinically intact; oropharynx: clear, mucosa moist Neck: soft tissue: non-tender; thyroid: normal Pulmonary: clear to auscultation bilaterally, good aeration, no accessory muscle use CV: RR/RR, normal S1S2, no carotid bruit, no jugular venous distention, 2+ B DP/ PT, no edema Abdominal: soft, non-distended, non-tender, no rebound/guarding/rigidity, normoactive bowel sounds, no hepatosplenomegaly or masses, no costovertebral angle tenderness Musculoskeletal: general: R 3rd distal phalanx absent Integumental: normal appearance and texture of exposed skin Psychiatric orientation: AA&O to PPS affect: calm mood: cooperative eye contact: good content: reliable responses: timely insight: fair Testing: Lab Results 04/07/17 04/07/17 04/07/17 Range/Units 21:39 21:39 21:39 WBC (3.5-10.8) 10^3/ul RBC (4.0-5.4) 10^6/ul Hgb (14.0-18.0) g/dl Hct (42-52) % MCV (80-94) fL MCH (27-31) pg MCHC (31-36) g/dl RDW (10.5-15) % Plt Count (150-450) 10^3/ul MPV (7.4-10.4) um3 Neut % (Auto) (38-83) % Lymph % (Auto) (25-47) % [place] % (Auto) (1-9) % Eos % (Auto) (0-6) % Baso % (Auto) (0-2) % Absolute Neuts (auto) (1.5-7.7) 10^3/ul Absolute Lymphs (auto) (1.0-4.8) 10^3/ul Absolute Monos (auto) (0-0.8) 10^3/ul Absolute Eos (auto) (0-0.6) 10^3/ul Absolute Basos (auto) (0-0.2) 10^3/ul Absolute Nucleated RBC 10^3/ul Nucleated RBC % INR (Anticoag Therapy) 1.18 H (0.89-1.11) APTT 26.1 (26.0-36.3) seconds D-Dimer, Quantitative 596 H (Less Than 230) ng/mL Sodium 138 (133-145) mmol/L Potassium 4.5 (3.5-5.0) mmol/L Chloride 104 (101-111) mmol/L Carbon Dioxide 28 (22-32) mmol/L Anion Gap 6 (2-11) mmol/L BUN 30 H (6-24) mg/dL Creatinine 1.39 H (0.67-1.17) mg/dL Est GFR ( Amer) 62.0 (>60) Est GFR (Non-Af Amer) 48.2 (>60) BUN/Creatinine Ratio 21.6 H (8-20) Glucose 156 H (70-100) mg/dL POC Glucose (mg/dL) (70-100) mg/dL Lactic Acid (0.5-2.0) mmol/L Calcium 9.0 (8.6-10.3) mg/dL Magnesium 2.1 (1.9-2.7) mg/dL Total Bilirubin 0.50 (0.2-1.0) mg/dL AST 23 (13-39) U/L ALT 19 (7-52) U/L Alkaline Phosphatase 58 (34-104) U/L Total Creatine Kinase 91 (10-223) U/L CK-MB (CK-2) 3.3 (0.6-6.3) ng/mL Troponin I 0.06 H* (<0.04) ng/mL C-Reactive Protein 1.15 (< 5.00) mg/L B-Natriuretic Peptide 43 ( - 100) pg/mL Total Protein 6.8 (6.4-8.9) g/dL Albumin 4.0 (3.2-5.2) g/dL Globulin 2.8 (2-4) g/dL Albumin/Globulin Ratio 1.4 (1-3) Lipase 61 (11.0-82.0) U/L TSH 2.45 (0.34-5.60) mcIU/mL Urine Color Urine Appearance Urine pH (5-9) Ur Specific [place] (1.010-1.030) Urine Protein (Negative) Urine Ketones (Negative) Urine Blood (Negative) Urine Nitrate (Negative) Urine Bilirubin (Negative) Urine Urobilinogen (Negative) Ur Leukocyte Esterase (Negative) Urine WBC (Auto) (Absent) Urine RBC (Auto) (Absent) Ur Squamous Epith Cells (Absent) Urine Bacteria (Absent) Urine Glucose (Negative) Urine Ascorbic Acid (Negative) 04/07/17 04/07/17 04/08/17 Range/Units 21:39 21:39 01:30 WBC 6.5 (3.5-10.8) 10^3/ul RBC 4.09 (4.0-5.4) 10^6/ul Hgb 10.9 L (14.0-18.0) g/dl Hct 33 L (42-52) % MCV 82 (80-94) fL MCH 27 (27-31) pg MCHC 33 (31-36) g/dl RDW 17 H (10.5-15) % Plt Count 217 (150-450) 10^3/ul MPV 8 (7.4-10.4) um3 Neut % (Auto) 54.7 (38-83) % Lymph % (Auto) 30.2 (25-47) % Vernon % (Auto) 11.5 H (1-9) % Eos % (Auto) 2.4 (0-6) % Baso % (Auto) 1.2 (0-2) % Absolute Neuts (auto) 3.6 (1.5-7.7) 10^3/ul Absolute Lymphs (auto) 2.0 (1.0-4.8) 10^3/ul Absolute Monos (auto) 0.8 (0-0.8) 10^3/ul Absolute Eos (auto) 0.2 (0-0.6) 10^3/ul Absolute Basos (auto) 0.1 (0-0.2) 10^3/ul Absolute Nucleated RBC 0.01 10^3/ul Nucleated RBC % 0.1 INR (Anticoag Therapy) (0.89-1.11) APTT (26.0-36.3) seconds D-Dimer, Quantitative (Less Than 230) ng/mL Sodium (133-145) mmol/L Potassium (3.5-5.0) mmol/L Chloride (101-111) mmol/L Carbon Dioxide (22-32) mmol/L Anion Gap (2-11) mmol/L BUN (6-24) mg/dL Creatinine (0.67-1.17) mg/dL Est GFR ( Amer) (>60) Est GFR (Non-Af Amer) (>60) BUN/Creatinine Ratio (8-20) Glucose (70-100) mg/dL POC Glucose (mg/dL) (70-100) mg/dL Lactic Acid 0.9 (0.5-2.0) mmol/L Calcium (8.6-10.3) mg/dL Magnesium (1.9-2.7) mg/dL Total Bilirubin (0.2-1.0) mg/dL AST (13-39) U/L ALT (7-52) U/L Alkaline Phosphatase (34-104) U/L Total Creatine Kinase (10-223) U/L CK-MB (CK-2) (0.6-6.3) ng/mL Troponin I (<0.04) ng/mL C-Reactive Protein (< 5.00) mg/L B-Natriuretic Peptide ( - 100) pg/mL Total Protein (6.4-8.9) g/dL Albumin (3.2-5.2) g/dL Globulin (2-4) g/dL Albumin/Globulin Ratio (1-3) Lipase (11.0-82.0) U/L TSH (0.34-5.60) mcIU/mL Urine Color Yellow Urine Appearance Cloudy Urine pH 6.0 (5-9) Ur Specific [place] 1.023 (1.010-1.030) Urine Protein Negative (Negative) Urine Ketones Negative (Negative) Urine Blood Negative (Negative) Urine Nitrate Negative (Negative) Urine Bilirubin Negative (Negative) Urine Urobilinogen Negative (Negative) Ur Leukocyte Esterase 3+ H (Negative) Urine WBC (Auto) 3+(>20/hpf) H (Absent) Urine RBC (Auto) 3+(>10/hpf) H (Absent) Ur Squamous Epith Cells Present H (Absent) Urine Bacteria 1+ H (Absent) Urine Glucose Negative (Negative) Urine Ascorbic Acid * H (Negative) 04/08/17 04/08/17 04/08/17 Range/Units 06:56 06:56 07:53 WBC (3.5-10.8) 10^3/ul RBC (4.0-5.4) 10^6/ul Hgb 10.9 L (14.0-18.0) g/dl Hct 33 L (42-52) % MCV (80-94) fL MCH (27-31) pg MCHC (31-36) g/dl RDW (10.5-15) % Plt Count (150-450) 10^3/ul MPV (7.4-10.4) um3 Neut % (Auto) (38-83) % Lymph % (Auto) (25-47) % Vernon % (Auto) (1-9) % Eos % (Auto) (0-6) % Baso % (Auto) (0-2) % Absolute Neuts (auto) (1.5-7.7) 10^3/ul Absolute Lymphs (auto) (1.0-4.8) 10^3/ul Absolute Monos (auto) (0-0.8) 10^3/ul Absolute Eos (auto) (0-0.6) 10^3/ul Absolute Basos (auto) (0-0.2) 10^3/ul Absolute Nucleated RBC 10^3/ul Nucleated RBC % INR (Anticoag Therapy) (0.89-1.11) APTT (26.0-36.3) seconds D-Dimer, Quantitative (Less Than 230) ng/mL Sodium (133-145) mmol/L Potassium (3.5-5.0) mmol/L Chloride (101-111) mmol/L Carbon Dioxide (22-32) mmol/L Anion Gap (2-11) mmol/L BUN (6-24) mg/dL Creatinine (0.67-1.17) mg/dL Est GFR ( Amer) (>60) Est GFR (Non-Af Amer) (>60) BUN/Creatinine Ratio (8-20) Glucose (70-100) mg/dL POC Glucose (mg/dL) 142 H (70-100) mg/dL Lactic Acid (0.5-2.0) mmol/L Calcium (8.6-10.3) mg/dL Magnesium (1.9-2.7) mg/dL Total Bilirubin (0.2-1.0) mg/dL AST (13-39) U/L ALT (7-52) U/L Alkaline Phosphatase (34-104) U/L Total Creatine Kinase (10-223) U/L CK-MB (CK-2) (0.6-6.3) ng/mL Troponin I 0.07 H* (<0.04) ng/mL C-Reactive Protein (< 5.00) mg/L B-Natriuretic Peptide ( - 100) pg/mL Total Protein (6.4-8.9) g/dL Albumin (3.2-5.2) g/dL Globulin (2-4) g/dL Albumin/Globulin Ratio (1-3) Lipase (11.0-82.0) U/L TSH (0.34-5.60) mcIU/mL Urine Color Urine Appearance Urine pH (5-9) Ur Specific [place] (1.010-1.030) Urine Protein (Negative) Urine Ketones (Negative) Urine Blood (Negative) Urine Nitrate (Negative) Urine Bilirubin (Negative) Urine Urobilinogen (Negative) Ur Leukocyte Esterase (Negative) Urine WBC (Auto) (Absent) Urine RBC (Auto) (Absent) Ur Squamous Epith Cells (Absent) Urine Bacteria (Absent) Urine Glucose (Negative) Urine Ascorbic Acid (Negative) ECG, personally reviewed: dual chamber paced rhythm rate 66 CXR, personally reviewed: IMPRESSION: CARDIAC PACEMAKER. NO ACTIVE DISEASE CTA chest, personally reviewed: IMPRESSION: 1. NO PULMONARY OR FILLING DEFECTS TO SUGGEST PULMONARY EMBOLISM. 2. COPD. 3. 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 4. CHOLELITHIASIS. Impression: 86M presenting with spinning dizziness similar to symptoms for which pacer was placed DIAGNOSIS & PLAN Primary spinning dizziness : ? pacer malfunction, obtain interrogation report from Sebas Grover's office : telemetry : trend troponin : consider cardiology consult in AM pending work up : supplemental oxygen : PRN meclizine : supportive care Secondary DM2 : consistent carb diet : review meds once reconciled CAD/IL : review meds once reconciled HTN : review meds once reconciled dysplastic nevus syndrome : no acute issues essential tremor : review meds once reconciled BPH : review meds once reconciled Admission Rational: observation for chest pain & near syncope DVTp: heparin SQ Code Status: full HCP: [email or web address] [id number], [id number]
[2017-04-08] MEDS ORDERED: Omeprazole CAP* 20 MG PO PRN (03:51)
[2017-04-08] MEDS ORDERED: traMADol TAB* 50 MG PO PRN (03:55)
[2017-04-08] MEDS ORDERED: Ondansetron INJ* 2 MG/ML VIAL IV PRN (03:55)
[2017-04-08] MEDS ORDERED: Albuterol 2.5 MG/3 ML NEB.SOL* (0.083%) INH PRN (03:55)
[2017-04-08] MEDS ORDERED: Acetaminophen TAB* 325 MG PO PRN (03:55)
--- NOTE | 2017-04-08 06:39 | ED ---
Beatrice Levin Rebecca, scribed for Xavier Ledbetter MD on 04/07/17 at 2140 . HPI Chest Pain - HPI Summary HPI Summary: Pt is an 86 y/o M BIBA who presents to ED c/o intermittent CP. Pain began last night and has been intermittent since onset, increasing in frequency this afternoon. Pain is in the left lateral "heart area" region without radiation. Pain is described as sharp, intermittent "jolts." Sx aggravated by nothing, alleviated by 325 mg ASA, taken between 2014 and 2029 tonight. Has not had any pain since taking the ASA. Additionally notes an episode of lightheadedness and dizziness yesterday. Has been experinecing simliar episodes of lightheadedness recently. C/o mild SOB while the pain was present. Denies diaphoresis, edema and nausea. PMHx "slight heart attack" 3 years ago and the pain yesterday was similar to the symptoms experienced during that episodes. Was seen in Dr. Grover' s office earlier today for a pacemaker check and has an appointment with Dr. Grover tomorrow at noon. - History of Current Complaint Chief Complaint: EDChestPainROMI Time Seen by Provider: 04/07/17 21:18 Hx Obtained From: Patient Onset/Duration: Resolved Timing: Intermittent Initial Severity: Moderate - 4/10 on triage Current Severity: None Pain Intensity: 0 Pain Scale Used: 0-10 Numeric Chest Pain Location: Left Anterior Chest Pain Radiates: No Character: Sharp/Stabbing Aggravating Factor(s): Nothing Alleviating Factor(s): Medication - ASA Associated Signs and Symptoms: Positive: Dizziness, Shortness of Breath - mild associated with pain, Lightheadedness. 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 GROVER FOLLOWS Denies: Hx Peripheral Vascular Disease, Hx Syncope Respiratory History: Reports: Other Respiratory Problems/Disorders - PNEUMONIA AGE 14 GI History: Reports: Hx Gastroesophageal Reflux Disease, Hx Hiatal Hernia - STATES HAS NO PROBLEMS WITH Denies: Hx Ulcer History: Reports: Other Problems/Disorders - Some type of prostate surgery Musculoskeletal History: Denies: Hx Arthritis, Hx Osteoporosis Sensory History: Reports: Hx Contacts or Glasses Denies: Hx Cataracts, Hx Glaucoma, Hx Hearing Aid Opthamlomology History: Reports: Hx Contacts or Glasses Denies: Hx Cataracts, Hx Glaucoma Neurological History: Reports: Other Neuro Impairments/Disorders - Essential Tremor Denies: Hx Headaches, Hx Migraine, Hx Seizures, Hx Spinal Cord Injury, Hx Transient Ischemic Attacks (TIA) - Cancer History Cancer Type, Location and Year: Basal cell carcinoma-all over, has had surgery for removal. Cancer under R middle finger nail, part of finger removed-can not remember name - Surgical History Surgery Procedure, Year, and Place: Exploratory Surgeries (92,94,98), Appendectomy, acetabulum repair, total L hip replacement Hx Anesthesia Reactions: No Infectious Disease History: No Infectious Disease History: Reports: Hx Shingles Denies: Hx Clostridium Difficile, Hx Hepatitis, Hx Human Immunodeficiency Virus (HIV), Hx of Known/Suspected MRSA, Traveled Outside the [place] in Last 30 Days - Family History Known Family History: Negative: Cardiac Disease, Other Family History: No FHx of skin cancer - Social History Alcohol Use: Rare Alcohol Amount: approx 1 beer a month Hx Substance Use: No Substance Use Type: Reports: None Hx Tobacco Use: Yes Smoking Status (MU): Former Smoker Amount Used/How Often: 1 PPD X 15 YEARS? Have You Smoked in the Last Year: No Review of Systems Negative: Skin Diaphoresis Positive: Chest Pain - intermittent, sharp, currently not present Positive: Shortness Of Breath - associated with pain Negative: Nausea Negative: Edema Neurological: Other - Episodes of lightheadedness and dizziness All Other Systems Reviewed And Are Negative: Yes Physical Exam - Summary Physical Exam Summary: General: well-appearing, no pain distress Skin: warm, color reflects adequate perfusion, dry Head: normal Eyes: EOMI, SHANKAR ENT: normal Neck: supple, nontender Respiratory: CTA, breath sounds present Cardiovascular: RRR Abdomen: soft, nontender Bowel: present Musculoskeletal: normal, strength/ROM intact Neurological: normal, sensory/motor intact, A&O x3 Psychological: affect/mood appropriate Triage Information Reviewed: Yes Vital Signs On Initial Exam: Initial Vitals Temp Pulse Resp BP Pulse Ox 99.3 F 61 16 156/99 97 04/07/17 21:11 04/07/17 21:11 04/07/17 21:11 04/07/17 21:11 04/07/17 21:11 Vital Signs Reviewed: Yes Diagnostics - Vital Signs Vital Signs Temp Pulse Resp BP Pulse Ox 04/07/17 21:11 99.3 F 61 16 156/99 97 - Laboratory Lab Results: Lab Results 04/07/17 04/07/17 04/07/17 Range/Units 21:39 21:39 21:39 WBC (3.5-10.8) 10^3/ul RBC (4.0-5.4) 10^6/ul Hgb (14.0-18.0) g/dl Hct (42-52) % MCV (80-94) fL MCH (27-31) pg MCHC (31-36) g/dl RDW (10.5-15) % Plt Count (150-450) 10^3/ul MPV (7.4-10.4) um3 Neut % (Auto) (38-83) % Lymph % (Auto) (25-47) % Hood % (Auto) (1-9) % Eos % (Auto) (0-6) % Baso % (Auto) (0-2) % Absolute Neuts (auto) (1.5-7.7) 10^3/ul Absolute Lymphs (auto) (1.0-4.8) 10^3/ul Absolute Monos (auto) (0-0.8) 10^3/ul Absolute Eos (auto) (0-0.6) 10^3/ul Absolute Basos (auto) (0-0.2) 10^3/ul Absolute Nucleated RBC 10^3/ul Nucleated RBC % INR (Anticoag Therapy) 1.18 H (0.89-1.11) APTT 26.1 (26.0-36.3) seconds D-Dimer, Quantitative 596 H (Less Than 230) ng/mL Sodium 138 (133-145) mmol/L Potassium 4.5 (3.5-5.0) mmol/L Chloride 104 (101-111) mmol/L Carbon Dioxide 28 (22-32) mmol/L Anion Gap 6 (2-11) mmol/L BUN 30 H (6-24) mg/dL Creatinine 1.39 H (0.67-1.17) mg/dL Est GFR ( Amer) 62.0 (>60) Est GFR (Non-Af Amer) 48.2 (>60) BUN/Creatinine Ratio 21.6 H (8-20) Glucose 156 H (70-100) mg/dL Lactic Acid (0.5-2.0) mmol/L Calcium 9.0 (8.6-10.3) mg/dL Magnesium 2.1 (1.9-2.7) mg/dL Total Bilirubin 0.50 (0.2-1.0) mg/dL AST 23 (13-39) U/L ALT 19 (7-52) U/L Alkaline Phosphatase 58 (34-104) U/L Total Creatine Kinase 91 (10-223) U/L CK-MB (CK-2) 3.3 (0.6-6.3) ng/mL Troponin I 0.06 H* (<0.04) ng/mL C-Reactive Protein 1.15 (< 5.00) mg/L B-Natriuretic Peptide 43 ( - 100) pg/mL Total Protein 6.8 (6.4-8.9) g/dL Albumin 4.0 (3.2-5.2) g/dL Globulin 2.8 (2-4) g/dL Albumin/Globulin Ratio 1.4 (1-3) Lipase 61 (11.0-82.0) U/L TSH 2.45 (0.34-5.60) mcIU/mL Urine Color Urine Appearance Urine pH (5-9) Ur Specific Colt (1.010-1.030) Urine Protein (Negative) Urine Ketones (Negative) Urine Blood (Negative) Urine Nitrate (Negative) Urine Bilirubin (Negative) Urine Urobilinogen (Negative) Ur Leukocyte Esterase (Negative) Urine WBC (Auto) (Absent) Urine RBC (Auto) (Absent) Ur Squamous Epith Cells (Absent) Urine Bacteria (Absent) Urine Glucose (Negative) Urine Ascorbic Acid (Negative) 04/07/17 04/07/17 04/08/17 Range/Units 21:39 21:39 01:30 WBC 6.5 (3.5-10.8) 10^3/ul RBC 4.09 (4.0-5.4) 10^6/ul Hgb 10.9 L (14.0-18.0) g/dl Hct 33 L (42-52) % MCV 82 (80-94) fL MCH 27 (27-31) pg MCHC 33 (31-36) g/dl RDW 17 H (10.5-15) % Plt Count 217 (150-450) 10^3/ul MPV 8 (7.4-10.4) um3 Neut % (Auto) 54.7 (38-83) % Lymph % (Auto) 30.2 (25-47) % Hood % (Auto) 11.5 H (1-9) % Eos % (Auto) 2.4 (0-6) % Baso % (Auto) 1.2 (0-2) % Absolute Neuts (auto) 3.6 (1.5-7.7) 10^3/ul Absolute Lymphs (auto) 2.0 (1.0-4.8) 10^3/ul Absolute Monos (auto) 0.8 (0-0.8) 10^3/ul Absolute Eos (auto) 0.2 (0-0.6) 10^3/ul Absolute Basos (auto) 0.1 (0-0.2) 10^3/ul Absolute Nucleated RBC 0.01 10^3/ul Nucleated RBC % 0.1 INR (Anticoag Therapy) (0.89-1.11) APTT (26.0-36.3) seconds D-Dimer, Quantitative (Less Than 230) ng/mL Sodium (133-145) mmol/L Potassium (3.5-5.0) mmol/L Chloride (101-111) mmol/L Carbon Dioxide (22-32) mmol/L Anion Gap (2-11) mmol/L BUN (6-24) mg/dL Creatinine (0.67-1.17) mg/dL Est GFR ( Amer) (>60) Est GFR (Non-Af Amer) (>60) BUN/Creatinine Ratio (8-20) Glucose (70-100) mg/dL Lactic Acid 0.9 (0.5-2.0) mmol/L Calcium (8.6-10.3) mg/dL Magnesium (1.9-2.7) mg/dL Total Bilirubin (0.2-1.0) mg/dL AST (13-39) U/L ALT (7-52) U/L Alkaline Phosphatase (34-104) U/L Total Creatine Kinase (10-223) U/L CK-MB (CK-2) (0.6-6.3) ng/mL Troponin I (<0.04) ng/mL C-Reactive Protein (< 5.00) mg/L B-Natriuretic Peptide ( - 100) pg/mL Total Protein (6.4-8.9) g/dL Albumin (3.2-5.2) g/dL Globulin (2-4) g/dL Albumin/Globulin Ratio (1-3) Lipase (11.0-82.0) U/L TSH (0.34-5.60) mcIU/mL Urine Color Yellow Urine Appearance Cloudy Urine pH 6.0 (5-9) Ur Specific Colt 1.023 (1.010-1.030) Urine Protein Negative (Negative) Urine Ketones Negative (Negative) Urine Blood Negative (Negative) Urine Nitrate Negative (Negative) Urine Bilirubin Negative (Negative) Urine Urobilinogen Negative (Negative) Ur Leukocyte Esterase 3+ H (Negative) Urine WBC (Auto) 3+(>20/hpf) H (Absent) Urine RBC (Auto) 3+(>10/hpf) H (Absent) Ur Squamous Epith Cells Present H (Absent) Urine Bacteria 1+ H (Absent) Urine Glucose Negative (Negative) Urine Ascorbic Acid * H (Negative) Result Diagrams: 04/07/17 21:39 04/07/17 21:39 Lab Statement: Any lab studies that have been ordered have been reviewed, and results considered in the medical decision making process. - Radiology CXR Xray Interpretation: No Acute Changes - CARDIAC PACEMAKER. NO ACTIVE DISEASE Radiology Interpretation Completed By: Radiologist - EKG 2103 Cardiac Rate: NL - 73 bpm EKG Interpretation: Atrial paced at 73 bpm Chest Pain Course/Dx - Course Course Of Treatment: DISCUSSED RESULTS WITH PATIENT/DAUGHTER. ADMIT HOSPITALIST. NO UTI SX THEREFORE NO ABX AT THIS TIME. NO CRITICAL CARE TIME. Assessment/Plan: BP noted and advised to follow up with PCP. Medications reviewed this visit. - Diagnoses Provider Diagnoses: Chest pain - Provider Notifications Discussed Care Of Patient With: John Edwards Time Discussed With Above Provider: 22:26 Instructed by Provider To: Other - Accepts pt for admission. Discharge - Discharge Plan Condition: Stable Disposition: ADMITTED TO [facility] documentation as recorded by the Beatrice rudolph Rebecca accurately reflects the service I personally performed and the decisions made by me, Xavier Ledbetter MD.
[2017-04-08 07:06] LABS: Hematocrit 33 % (42-52); Hemoglobin 10.9 g/dl (14.0-18.0)
--- NOTE | 2017-04-08 07:51 | RAD ---
HISTORY: Chest pain, positive d-dimer COMPARISONS: None TECHNIQUE: Multiple contiguous axial CT scans of the chest were obtained after the administration of nonionic intravenous contrast, timed to the pulmonary arterial phase of contrast enhancement.. Coronal and sagittal multiplanar reformations are also submitted for review. FINDINGS: Evaluation is limited by suboptimal contrast opacification. Attenuation of the main pulmonary artery is between 200-250 Hounsfield units which is of diagnostic but borderline quality for the detection of pulmonary embolism. NECK AND THYROID: The lower neck and thyroid are unremarkable. CHEST WALL: There is no lower cervical, axillary, or supraclavicular lymphadenopathy by size criteria. HEART AND PERICARDIUM: The heart is unremarkable. AORTA AND PULMONARY VASCULATURE: Evaluation is limited by suboptimal contrast opacification. There is no pulmonary arterial filling defect to suggest pulmonary embolism. There is no linear filling defect within the aorta to suggest aortic dissection. MEDIASTINUM: There are multiple subcentimeter short axis mediastinal lymph nodes in the prevascular, paratracheal space, and AP window. These are partially calcified. There is no lymphadenopathy by size criteria. GEORGETTE: There is no hilar lymphadenopathy by size criteria. AIRWAY AND ESOPHAGUS: The airway is unremarkable, without endobronchial filling defect. The esophagus is grossly normal. LUNG PARENCHYMA: There is mild centrilobular edematous change. PLEURA: No pleural abnormalities are noted. UPPER ABDOMEN: Multiple bilateral renal calyceal stones are noted. There is mild fullness of the left renal pelvis. Gallstones are noted. BONES AND SOFT TISSUES: Degenerative changes are noted of the spine. OTHER: None. IMPRESSION: 1. NO PULMONARY OR FILLING DEFECTS TO SUGGEST PULMONARY EMBOLISM. 2. COPD. 3. 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 4. CHOLELITHIASIS.
[2017-04-08] MEDS: Insulin LISPRO* 1 UNITS UNIT SUBCUT SCH ×4 (09:24→21:34)
[2017-04-08] MEDS: Docusate CAP* 100 MG PO SCH ×2 (09:32→21:05)
[2017-04-08] MEDS ORDERED: Meclizine TAB* 12.5 MG PO PRN (09:32)
[2017-04-08] MEDS: Gabapentin CAP(*) 100 MG PO SCH ×2 (09:33→21:00)
[2017-04-08] MEDS: Aspirin Low Dose CHEW TAB* 81 MG PO SCH (09:33)
[2017-04-08] MEDS: Finasteride TAB* 5 MG PO SCH (09:34)
[2017-04-08] MEDS: NS 0.9% 1000 ML* 1,000 ML IV SCH ×2 (12:04→19:12)
--- NOTE | 2017-04-08 13:07 | ECHO ---
Patient: RENUKA SORIANO [facility] Rec#: [id number] : 1930 Date: 04/08/2017 Age: 86y Height: 185.42 cm / 73.0 in Weight: 74.84 kg / 164.9 lbs Sex: M BSA: 1.98 Room#: 444 Admit Date#: 04/08/2017 Type: Inpatient Referring: John Edwards MD Reading: Kary Cheema MD Procedures Nurse: Ivet Becerra,MATTCS,RDMS CC: Álvaro Dixon MD CC: Saulo Grover MD Transthoracic Echocardiogram Indication: Syncope BP: 150/70 HR: 54 Rhythm: Paced Findings History: Pacemaker, DM, CP Technical Comments: The study quality is good. Completed 1020 Left Ventricle: The left ventricular chamber size is normal. Mild concentric left ventricular hypertrophy is observed. There is normal left ventricular systolic function.septal bounce noted. The estimated ejection fraction is 60-65%. Abnormal left ventricular diastolic filling is observed, consistent with impaired relaxation. Left Atrium: The left atrium is moderately dilated. Right Ventricle: The right ventricular chamber size and systolic function are within normal limits. A pacemaker wire is visualized in the right ventricle. Right Atrium: The right atrial cavity size is normal. A pacemaker wire is visualized in the right atrium. Aortic Valve: The aortic valve is trileaflet. Systolic excursion of the aortic valve is normal. There is trace to mild aortic regurgitation. There is no evidence of aortic stenosis. Mitral Valve: The mitral valve leaflets are mildly thickened. There is mild mitral regurgitation. There is no evidence of mitral stenosis. Tricuspid Valve: The tricuspid valve leaflets are normal. There is trace tricuspid regurgitation. Unable to estimate the right ventricular systolic pressure. Pulmonic Valve: The pulmonic valve appears normal. There is trace to mild pulmonic regurgitation. Pericardium: There is no significant pericardial effusion. Aorta: There is mild dilatation of the ascending aorta. The aortic arch is not well visualized. There is mild dilatation of the aortic root. Pulmonary Artery: The main pulmonary artery is not well visualized. Venous: The inferior vena cava appears normal in size. There is an approximate 50% respiratory change in the inferior vena cava dimension. Conclusions Mild concentric left ventricular hypertrophy is observed. There is normal left ventricular systolic function.septal bounce noted. The estimated ejection fraction is 60-65%. Abnormal left ventricular diastolic filling is observed, consistent with impaired relaxation. The right ventricular chamber size and systolic function are within normal limits. There is trace to mild aortic regurgitation. There is mild mitral regurgitation. There is trace tricuspid regurgitation. Compared with prior echo of 01/31/14, LVEF stable, septal bounce new, RV pacer is new, valve function is stable. Measurements Name Value Normal Range RVIDd (AP) 2D 2.7 cm (0.9 - 2.6) RVDdMajor (2D) 3.3 cm (2.2 - 4.4) RAd ISD 4CH 4.6 cm (3.4 - 4.9) RA (A4C)W 4.3 cm (2.9 - 4.6) IVSd (2D) 1.2 cm (0.6 - 1) LVPWd (2D) 1.2 cm (0.6 - 1) LVIDd (2D) 5.3 cm (3.6 - 5.4) LVIDs (2D) 2.9 cm - LV FS (2D) 44 % (25 - 45) Aortic Annulus 2 cm (1.4 - 2.6) Ao root diameter (2D) 3.9 cm (2.1 - 3.5) Ascending Ao 3.8 cm (2.1 - 3.4) LA dimension (AP) 2D 4.2 cm (2.3 - 3.8) LAd ISD 4CH 5.3 cm (2.9 - 5.3) LA ISD 4CH W 4.6 cm (2.5 - 4.5) Name Value Normal Range LA ESV SP 4CH (A/L) 70.27 ml - LA ESV SP 2CH (A/L) 83.45 ml - LA ESV BP (A/L) 84.07 ml - LA ESV BP (A/L) index 42.5 ml/m2 - LA ESV SP 4CH (MOD) 65.57 ml - LA ESV SP 2CH (MOD) 76.37 ml - Name Value Normal Range MV E-wave Vmax 0.8 m/sec - MV deceleration time 245 msec - MV A-wave Vmax 1.1 m/sec - MV E:A ratio 0.7 ratio - P. vein S-wave Vmax 0.7 m/sec - P. vein D-wave Vmax 0.4 m/sec - P. vein S:D Vmax ratio 1.5 ratio - P. vein A-wave duration 105 msec - LV lateral e' Vmax 0.06 m/sec - LV E:e' lateral ratio 13 ratio - Name Value Normal Range AV Vmax 1.4 m/sec - AV VTI 28.9 cm - AV peak gradient 8 mmHg - AV mean gradient 3.8 mmHg - LVOT Vmax 1.2 m/sec - LVOT VTI 28.9 cm - LVOT peak gradient 6 mmHg - LVOT mean gradient 3 mmHg - AR PHT 744.66 msec - AR peak gradient 58.87 mmHg - Name Value Normal Range RAP 8 mmHg - IVC diameter 2.2 cm - Name Value Normal Range PV Vmax 1 m/sec - PV peak gradient 4 mmHg -
--- NOTE | 2017-04-08 16:49 | PN ---
Subjective Date of Service: 04/08/17 Interval History: Pt's symptoms of lightheadedness and CP resolved last night Objective Active Medications: Acetaminophen (Tylenol Tab*) 650 mg PO Q6H PRN PRN Reason: FEVER/PAIN Albuterol (Ventolin 2.5 Mg/3 Ml Neb.Yen*) 2.5 mg INH Q2H PRN PRN Reason: SOB/WHEEZING Aspirin (Aspirin Low Dose Tab*) 81 mg PO DAILY [facility] Last Admin: 04/08/17 09:33 Dose: 81 mg Atorvastatin Calcium (Lipitor*) 10 mg PO QPM [facility] Docusate Sodium (Colace Cap*) 200 mg PO BID [facility] Last Admin: 04/08/17 09:32 Dose: 200 mg Finasteride (Proscar Tab*) 5 mg PO DAILY [facility] Last Admin: 04/08/17 09:34 Dose: 5 mg Gabapentin (Neurontin Cap(*)) 200 mg PO BID [facility] Last Admin: 04/08/17 09:33 Dose: 200 mg Heparin Sodium (Porcine) (Heparin Vial(*)) 5,000 units SUBCUT Q8HR [facility] Sodium Chloride (Ns 0.9% 1000 Ml*) 1,000 mls @ 150 mls/hr IV PER RATE [facility] Last Admin: 04/08/17 12:04 Dose: 150 mls/hr Insulin Human Lispro (Humalog*) 0 units SUBCUT ACHS [facility] PRN Reason: Protocol Last Admin: 04/08/17 12:06 Dose: 1 unit Meclizine HCl (Antivert Tab*) 25 mg PO Q8HR PRN PRN Reason: DIZZINESS Metformin HCl (Glucophage*) 500 mg PO QPM [facility] Omeprazole (Prilosec Cap*) 20 mg PO DAILY PRN PRN Reason: INDIGESTION Ondansetron HCl (Zofran Inj*) 4 mg IV Q6H PRN PRN Reason: NAUSEA Tramadol HCl (Ultram*) 50 mg PO Q6H PRN PRN Reason: PAIN Vital Signs 04/08/17 04/08/17 04/08/17 03:59 04:20 07:43 Temperature 97.9 F 98.7 F Pulse Rate 61 66 58 Respiratory 20 18 16 Rate Blood Pressure 144/69 150/70 153/81 (mmHg) O2 Sat by Pulse 96 97 96 Oximetry 04/08/17 04/08/17 04/08/17 08:00 09:33 10:10 Temperature Pulse Rate 67 Respiratory 22 22 18 Rate Blood Pressure (mmHg) O2 Sat by Pulse 95 Oximetry 04/08/17 04/08/17 04/08/17 11:16 11:33 15:33 Temperature 98.5 F 99.2 F Pulse Rate 62 63 Respiratory 16 20 16 Rate Blood Pressure 131/59 135/61 (mmHg) O2 Sat by Pulse 98 97 Oximetry Oxygen Devices in Use Now: None Appearance: 86 yo M in nAD, aAOx3 Eyes: No Scleral Icterus, PERRLA Ears/Nose/Mouth/Throat: NL Teeth, Lips, Gums, Mucous Membranes Moist Neck: NL Appearance and Movements; NL JVP, Trachea Midline Respiratory: Symmetrical Chest Expansion and Respiratory Effort, Clear to Auscultation Cardiovascular: NL Sounds; No Murmurs; No JVD, RRR Abdominal: NL Sounds; No Tenderness; No Distention, No Hepatosplenomegaly Lymphatic: No Cervical Adenopathy Extremities: No Edema, No Clubbing, Cyanosis Skin: No Nodules or Sclerosis, - - left distal leg-above medial malleolus-stage 2 ulcer at 2x4 cm with clean bottom Neurological: Alert and Oriented x 3, NL Muscle Strength and Tone, - - intentional tremor in b/l UE's Result Diagrams: 04/08/17 06:56 04/07/17 21:39 Additional Lab and Data: Lab Results 04/07/17 04/07/17 04/07/17 Range/Units 21:39 21:39 21:39 WBC (3.5-10.8) 10^3/ul RBC (4.0-5.4) 10^6/ul Hgb (14.0-18.0) g/dl Hct (42-52) % MCV (80-94) fL MCH (27-31) pg MCHC (31-36) g/dl RDW (10.5-15) % Plt Count (150-450) 10^3/ul MPV (7.4-10.4) um3 Neut % (Auto) (38-83) % Lymph % (Auto) (25-47) % [place] % (Auto) (1-9) % Eos % (Auto) (0-6) % Baso % (Auto) (0-2) % Absolute Neuts (auto) (1.5-7.7) 10^3/ul Absolute Lymphs (auto) (1.0-4.8) 10^3/ul Absolute Monos (auto) (0-0.8) 10^3/ul Absolute Eos (auto) (0-0.6) 10^3/ul Absolute Basos (auto) (0-0.2) 10^3/ul Absolute Nucleated RBC 10^3/ul Nucleated RBC % INR (Anticoag Therapy) 1.18 H (0.89-1.11) APTT 26.1 (26.0-36.3) seconds D-Dimer, Quantitative 596 H (Less Than 230) ng/mL Sodium 138 (133-145) mmol/L Potassium 4.5 (3.5-5.0) mmol/L Chloride 104 (101-111) mmol/L Carbon Dioxide 28 (22-32) mmol/L Anion Gap 6 (2-11) mmol/L BUN 30 H (6-24) mg/dL Creatinine 1.39 H (0.67-1.17) mg/dL Est GFR ( Amer) 62.0 (>60) Est GFR (Non-Af Amer) 48.2 (>60) BUN/Creatinine Ratio 21.6 H (8-20) Glucose 156 H (70-100) mg/dL Lactic Acid (0.5-2.0) mmol/L Calcium 9.0 (8.6-10.3) mg/dL Magnesium 2.1 (1.9-2.7) mg/dL Total Bilirubin 0.50 (0.2-1.0) mg/dL AST 23 (13-39) U/L ALT 19 (7-52) U/L Alkaline Phosphatase 58 (34-104) U/L Total Creatine Kinase 91 (10-223) U/L CK-MB (CK-2) 3.3 (0.6-6.3) ng/mL Troponin I 0.06 H* (<0.04) ng/mL C-Reactive Protein 1.15 (< 5.00) mg/L B-Natriuretic Peptide 43 ( - 100) pg/mL Total Protein 6.8 (6.4-8.9) g/dL Albumin 4.0 (3.2-5.2) g/dL Globulin 2.8 (2-4) g/dL Albumin/Globulin Ratio 1.4 (1-3) Lipase 61 (11.0-82.0) U/L TSH 2.45 (0.34-5.60) mcIU/mL Urine Color Urine Appearance Urine pH (5-9) Ur Specific [place] (1.010-1.030) Urine Protein (Negative) Urine Ketones (Negative) Urine Blood (Negative) Urine Nitrate (Negative) Urine Bilirubin (Negative) Urine Urobilinogen (Negative) Ur Leukocyte Esterase (Negative) Urine WBC (Auto) (Absent) Urine RBC (Auto) (Absent) Ur Squamous Epith Cells (Absent) Urine Bacteria (Absent) Urine Glucose (Negative) Urine Ascorbic Acid (Negative) 04/07/17 04/07/17 04/08/17 Range/Units 21:39 21:39 01:30 WBC 6.5 (3.5-10.8) 10^3/ul RBC 4.09 (4.0-5.4) 10^6/ul Hgb 10.9 L (14.0-18.0) g/dl Hct 33 L (42-52) % MCV 82 (80-94) fL MCH 27 (27-31) pg MCHC 33 (31-36) g/dl RDW 17 H (10.5-15) % Plt Count 217 (150-450) 10^3/ul MPV 8 (7.4-10.4) um3 Neut % (Auto) 54.7 (38-83) % Lymph % (Auto) 30.2 (25-47) % [place] % (Auto) 11.5 H (1-9) % Eos % (Auto) 2.4 (0-6) % Baso % (Auto) 1.2 (0-2) % Absolute Neuts (auto) 3.6 (1.5-7.7) 10^3/ul Absolute Lymphs (auto) 2.0 (1.0-4.8) 10^3/ul Absolute Monos (auto) 0.8 (0-0.8) 10^3/ul Absolute Eos (auto) 0.2 (0-0.6) 10^3/ul Absolute Basos (auto) 0.1 (0-0.2) 10^3/ul Absolute Nucleated RBC 0.01 10^3/ul Nucleated RBC % 0.1 INR (Anticoag Therapy) (0.89-1.11) APTT (26.0-36.3) seconds D-Dimer, Quantitative (Less Than 230) ng/mL Sodium (133-145) mmol/L Potassium (3.5-5.0) mmol/L Chloride (101-111) mmol/L Carbon Dioxide (22-32) mmol/L Anion Gap (2-11) mmol/L BUN (6-24) mg/dL Creatinine (0.67-1.17) mg/dL Est GFR ( Amer) (>60) Est GFR (Non-Af Amer) (>60) BUN/Creatinine Ratio (8-20) Glucose (70-100) mg/dL Lactic Acid 0.9 (0.5-2.0) mmol/L Calcium (8.6-10.3) mg/dL Magnesium (1.9-2.7) mg/dL Total Bilirubin (0.2-1.0) mg/dL AST (13-39) U/L ALT (7-52) U/L Alkaline Phosphatase (34-104) U/L Total Creatine Kinase (10-223) U/L CK-MB (CK-2) (0.6-6.3) ng/mL Troponin I (<0.04) ng/mL C-Reactive Protein (< 5.00) mg/L B-Natriuretic Peptide ( - 100) pg/mL Total Protein (6.4-8.9) g/dL Albumin (3.2-5.2) g/dL Globulin (2-4) g/dL Albumin/Globulin Ratio (1-3) Lipase (11.0-82.0) U/L TSH (0.34-5.60) mcIU/mL Urine Color Yellow Urine Appearance Cloudy Urine pH 6.0 (5-9) Ur Specific [place] 1.023 (1.010-1.030) Urine Protein Negative (Negative) Urine Ketones Negative (Negative) Urine Blood Negative (Negative) Urine Nitrate Negative (Negative) Urine Bilirubin Negative (Negative) Urine Urobilinogen Negative (Negative) Ur Leukocyte Esterase 3+ H (Negative) Urine WBC (Auto) 3+(>20/hpf) H (Absent) Urine RBC (Auto) 3+(>10/hpf) H (Absent) Ur Squamous Epith Cells Present H (Absent) Urine Bacteria 1+ H (Absent) Urine Glucose Negative (Negative) Urine Ascorbic Acid * H (Negative) Assess/Plan/Problems-Billing Assessment: Episode of lightheadedness in an 86 yo M found to have troponin elevation with a PMH of BPH, HTN, IA, bradycardia, tremor recent pacer for SSS. - Patient Problems (1) Light headedness Comment: symptoms of bradycardia. Resolved. Pacemaker was adjusted by Dr. Cheema. will cont telem monitoring (2) Elevated troponin Comment: Peaked at 0.07. Pt c/o pin like pain in his precordial area yesterday. Has good exercise tolerance will order chemical stress test in aM (3) CKD (chronic kidney disease) stage 3, GFR 30-59 ml/min Comment: Creatinine at baseline (4) Leg wound, left Comment: chronic. Pt stated that he had taken care of it x 20 years, not interested in offered wound care consult (5) Type 2 diabetes mellitus Comment: Continue Lispro SS. (6) CAD (coronary artery disease) Comment: Troponin elevation as above, for now continue Aspirin and Atorvastatin. (7) DVT prophylaxis Comment: SQ heparin. Status and Disposition: OBV
[2017-04-08] MEDS ORDERED: metFORMIN* 500 MG TAB PO SCH (18:00)
[2017-04-08] MEDS ORDERED: Atorvastatin* 10 MG TAB PO SCH (18:00)
[2017-04-08] MEDS ORDERED: Heparin VIAL(*) 5000 UNITS/ML VIAL (FIVE THOUSAND) ONE (21:21)
[2017-04-08] MEDS: Heparin VIAL(*) 5000 UNITS/ML VIAL (FIVE THOUSAND) SUBCUT SCH ×2 (21:25→21:34)
--- NOTE | 2017-04-08 22:50 | CARD ---
CC: Dr. Grover; Hospitalist Service; Dr. Álvaro Dixon * PACEMAKER INTERROGATION NOTE: DATE OF PACEMAKER INTERROGATION: 04/08/17 - ROOM #444 REASON FOR INTERROGATION: Dizzy episodes and bradycardia noted on telemetry. Telemetry strips reviewed: Evidence of dual-chamber pacing at 60 beats a minute with occasional PVCs. There are single pauses after the PVCs, but intermittently, he will have multiple sequential beats at rates lower than the programmed pacer rates. Pacer interrogation done yesterday was reviewed and showed normal function. He has a Medtronic device "MVPR mode." Repeat interrogation today by myself (yesterday's was in the office) confirmed he has a Medtronic MRI compatible device model A2DR01, serial #[id number]. As above, he was programmed in MVPR mode with a low rate of 60 beats a minute and additionally, he had a feature turned on to prevent competing with the premature atrial beats. The patient atrially paced 89% of the time, ventricularly paced 43% of the time. P waves were sensed at 1.8 millivolts with atrial lead impedance of 399 ohms and atrial pacing threshold of 0.625 volts at 0.4 milliseconds. R waves are sensed at 6.1 millivolts, ventricular lead impedance 475 ohms, and ventricular pacing threshold is 0.75 volts at 0.4 milliseconds. His lower rate was as above 60 beats a minute and he has nice rate response curves. SUMMARY: In summary, Mr. Santa pacemaker shows function with performance appropriate for programming including allowing for dropped beats and blanking periods, but associated with dizziness and intermittent sustained bradycardia. We reprogrammed the device from MVP(R) to DDDR with AV delay of 350 milliseconds in an attempt to minimize ventricular pacing per tracking rate of 130 beats a minute. AT and AF detection is on to monitor at 171 beats a minute and V-tach detection is on for monitoring at 150 beats a minute or faster. [id number]/[facility] #: [id number] MTDD
[2017-04-09] MEDS: NS 0.9% 1000 ML* 1,000 ML IV SCH ×2 (01:50→10:42)
[2017-04-09] MEDS ORDERED: Heparin VIAL(*) 5000 UNITS/ML VIAL (FIVE THOUSAND) SUBCUT SCH (06:00)
[2017-04-09] MEDS: Heparin VIAL(*) 5000 UNITS/ML VIAL (FIVE THOUSAND) SUBCUT SCH (06:05)
[2017-04-09] MEDS: Insulin LISPRO* 1 UNITS UNIT SUBCUT SCH ×2 (08:41→11:53)
[2017-04-09] MEDS: Gabapentin CAP(*) 100 MG PO SCH (08:47)
[2017-04-09] MEDS: Docusate CAP* 100 MG PO SCH (08:47)
[2017-04-09] MEDS: Aspirin Low Dose CHEW TAB* 81 MG PO SCH (08:48)
[2017-04-09] MEDS: Finasteride TAB* 5 MG PO SCH (08:48)
[2017-04-09] MEDS ORDERED: Regadenoson* 0.4 MG/5 ML SYRINGE ONE (08:54)
[2017-04-09] MEDS ORDERED: Aminophylline IV* 25 MG/ML 10 ML VIAL ONE (08:54)
--- NOTE | 2017-04-09 10:34 | RAD ---
Edited for charges. INDICATION: Elevated troponin, chest pain. COMPARISON: There are no prior studies available for comparison. Technique: A single day myocardial perfusion stress study was performed. Initially the resting study was performed. The patient was given an intravenous injection of 10.8 mCi of technetium 99m tetrofosmin and and the heart was imaged in multiple projections. The patient returned later in the day and under the direction of Dr. Rousseau, the patient was given intervenous injection of Lexiscan. Subsequently the patient was given intravenous injection of 25.9 mCi of technetium 99m tetrofosmin and the heart was imaged in multiple projections. Images were reconstructed in the axial, sagittal and coronal planes and in a 3- D format. FINDINGS: There is hypokinesis in the cardiac apex. The left ventricular ejection fraction is calculated to be 60%. Review of the images demonstrates decreased activity in the inferior wall and cardiac apex on both the post pharmacologic stress and resting images. No other focal abnormalities are seen. There is no evidence for ischemia. IMPRESSION: 1. DECREASED ACTIVITY IN THE CARDIAC APEX WITH DECREASED WALL MOTION SUGGESTIVE OF A SMALL INFARCT. 2. DECREASED ACTIVITY IN THE INFERIOR WALL SUGGESTIVE OF ATTENUATION ARTIFACT OR INFARCT. THERE IS NO EVIDENCE FOR ISCHEMIA. ASSESSMENT: Low risk. Based on imaging criteria from ACC/AHA 2002 Guideline Update for the Management of Patients With Chronic Stable Angina Table 23. Noninvasive Risk Stratification. MTDD
[2017-04-09 11:57] VITALS: BP 154/86
--- NOTE | 2017-04-10 04:00 | DS ---
CC: Dr. Dixon; Dr. Grover; Dr. Cheema * DISCHARGE SUMMARY: DATE OF ADMISSION: 04/08/17 DATE OF DISCHARGE: 04/09/17 PRIMARY CARE PROVIDER: Dr. Dixon. DISCHARGE DIAGNOSES: 1. Lightheadedness due to symptomatic bradycardia. The patient is status post web reprogramming of his pacemaker from MVP to DDDR with AV delay of 350 milliseconds. 2. Indeterminate troponin and chest pain with low probability cardiac stress test documented at discharge. SECONDARY DIAGNOSES: 1. History of sick sinus syndrome, status post pacemaker placement. 2. History of diabetes type 2. 3. Chronic obstructive pulmonary disease. 4. History of coronary artery disease. 5. Nephrolithiasis. 6. Cholelithiasis. 7. Hypertension. 8. Essential tremor. 9. History of benign prostatic hypertrophy. MEDICATIONS AT DISCHARGE: Include: 1. Metformin 500 mg daily. 2. Zocor 20 mg daily. 3. Omeprazole 20 mg daily. 4. [place]-3 fatty acids 1200 mg b.i.d. 5. Nitroglycerin on a p.r.n. basis. 6. Multivitamin 1 tablet daily. 7. Meloxicam 15 mg daily. 8. Neurontin 200 mg b.i.d. 9. Proscar 5 mg daily. 10. Vitamin B12 1000 mcg daily. 11. Coenzyme Q10 400 mg daily. 12. Cinnamon 500 mg daily. 13. Vitamin D3 2000 units daily. 14. Aspirin 81 mg daily. 15. Acetaminophen on a p.r.n. basis. LABORATORY DATA AND STUDIES PERFORMED DURING THE HOSPITAL STAY: Included: On 04/08/17, hemoglobin of 10.9, hematocrit of 33. On 04/07/17, sodium of 138, potassium 4.5, chloride 104, carbon dioxide 28, BUN 30, creatinine 1.39, which is consistent with prior. The patient's troponin was 0.06 to 0.07 throughout his hospital stay. CT angiogram of the chest obtained on admission, impression: "No pulmonary or filling defects to suggest pulmonary embolism, COPD. Bilateral nephrolithiasis with mild fullness of the left renal pelvis. Cholelithiasis." Transthoracic echocardiogram on 04/08/17 showed mild concentric LVH with EF of 60% to 65% with abnormal left ventricular systolic filling observed consistent with impaired relaxation. There was mild mitral regurgitation and trace tricuspid regurgitation. Cardiac stress test obtained on 09/14/17, the nuclear portion showed decreased activity in the cardiac apex with decreased wall motion suggestive of small infarct. Decreased activity in the inferior wall suggestive of attenuation artifact or infarct. There is no evidence of ischemia and was assessed as low risk. HOSPITALIZATION COURSE: Xavier Diaz is an 86-year-old male with history of status post recent pacemaker placement in February of 2017 for sick sinus syndrome as well as history of coronary artery disease in the past who presented complaining of lightheadedness again, which was a same symptoms that happened when his pacemaker needed to be placed. He also complained of needle- like pain in his precordial area and it resolved by the time of admission. He was evaluated and it was noted that he is bradycardic, on telemetry monitored bed despite having the pacemaker. Dr. Cheema saw patient in evaluation and made the above-mentioned changes. After the patient's pacer was adjusted, his lightheadedness resolved. The patient's troponin was 0.07 and 0.06 and due to that, cardiac stress test was obtained in the morning on 04/09/17, which was noted to be low risk with 2 areas of infarct in the past. At the time of discharge, the patient feels well. He is going to be recommended to follow up with his primary care provider in 4 to 7 days. Please note that this is a short summary of the patient's hospital stay. Please refer to further medical records for details. TIME SPENT: Approximately 32 minutes were spent on the patient's discharge. [id number]/[facility] #: [id number] JOSE
== END 2017-04-09 15:25 | disposition home or self-care (01) ==
LOC: ED 20:59 → MEDTELE 04-08 03:47
PROVIDERS: ADMIT Hospitalist; ATTEND Internal Medicine
DX: R00.1 Bradycardia, unspecified (principal); R42 Dizziness and giddiness; R07.9 Chest pain, unspecified; R74.8 Abnormal levels of other serum enzymes; Z95.0 Presence of cardiac pacemaker; E11.9 Type 2 diabetes mellitus without complications; J44.9 Chronic obstructive pulmonary disease, unspecified; I10 Essential (primary) hypertension; G25.0 Essential tremor; I25.10 Atherosclerotic heart disease of native coronary artery without angina pectoris; Z88.0 Allergy status to penicillin; I25.2 Old myocardial infarction; R06.02 Shortness of breath; Z87.891 Personal history of nicotine dependence; N40.0 Benign prostatic hyperplasia without lower urinary tract symptoms; K80.20 Calculus of gallbladder without cholecystitis without obstruction; N20.0 Calculus of kidney; Z79.84 Long term (current) use of oral hypoglycemic drugs; Z79.82 Long term (current) use of aspirin; Z79.899 Other long term (current) drug therapy; I45.2 Bifascicular block; I51.7 Cardiomegaly
CPT/HCPCS: 36415; 71010; 71275; 78452; 80053; 81003; 81015; 82550; 82553; 83605; 83690; 83735; 83880; 84443; 84484; 85014; 85018; 85025; 85379; 85610; 85730; 86140; 87077; 87086; 87186; 93005; 93017; 93306; 94760; 96360; 96361; 96372; 99285; A9270-GY; A9502; G0378; J0280; J1644; J2785; Q9967

== ENCOUNTER → 2017-06-24 07:17 | Day surgery (SDC) | payer MEDICARE, BC ==
[~2017-06-24 07:17] MED LIST: Acetaminophen TAB* 325 MG PO PRN; Buffered Lidocaine 0.9% SYRIN* 5 ML/SYR SYRINGE INTRADERM ONE; Buffered Lidocaine 0.9% SYRIN* 5 ML/SYR SYRINGE ONE; Cyclopentolate 1% OPTH.SOL* 2 ML BTL ONE; Ketorolac 0.5% OPHTH (NF) 0.5 % 5 ML BTL ONE; Lidocaine 1% MPF* 2 ML VIAL ONE; Lidocaine 2% EPI 1:200000 MPF* 20 ML VIAL ONE; Midazolam* 1 MG/ML 5 ML VIAL (5 MG) ONE; Neomycin/Polymy/Dex OPTH.SUSP* MAXITROL 0.1% 5 ML ONE; Phenylephrine 2.5% OPTH.SOL* 2 ML BTL ONE; Povidone Iodine 5% OPTH* 30 ML BTL ONE; Proparacaine 0.5% OPHTH.SOL* 15 ML BTL ONE; acetaZOLAMIDE TAB* 250 MG ONE
[2017-06-24 10:17] VITALS: BP 160/81
--- NOTE | 2017-06-24 15:16 | OP ---
DATE OF OPERATION: 06/24/17 - [facility] DATE OF : [birth year] SURGEON: Baldev Chu M.D. PREOPERATIVE DIAGNOSIS: Cataract, right eye. POSTOPERATIVE DIAGNOSIS: Cataract, right eye. OPERATIVE PROCEDURE: Extracapsular cataract extraction with intraocular lens implant, right eye. DESCRIPTION OF PROCEDURE: The patient was brought to the operating room after being given 1/2% Alcaine with epinephrine drops in the preoperative area. The eye was prepped and draped in the usual sterile fashion. Sterile drape and eyelid speculum were placed. Again, topical 1/2% Alcaine with epinephrine was given. A paracentesis incision was made at the 9 o'clock position with the No.75 blade. Clear cornea incision 2.2 x 2.2-mm was created at the 12 o'clock position starting at the anterior limbus using the 2.2-mm keratome. The anterior chamber was irrigated with 0.4 mL of 1% non-preservative intracameral lidocaine and filled with DisCoVisc. A capsulorrhexis was completed using the cystotome and the Utrata forceps. Hydrodissection was performed with balanced salt solution. The lens nucleus was removed with the Phacoemulsification handpiece without incident. Cortex was removed with the irrigation-aspiration handpiece. The capsular bag was re-inflated using DisCoVisc and an [id number] implant was inserted with the shooter. The irrigation-aspiration handpiece was used to remove all residual DisCoVisc. The eye was refilled with balanced salt solution and the wound checked and found to be watertight. Topical Maxitrol drops were given. [id number]/[facility] #: [id number] [facility]
== END | disposition home or self-care (01) ==
LOC: OREAST 07:17
PROVIDERS: ATTEND Specialist
DX: H25.811 Combined forms of age-related cataract, right eye (principal); H53.021 Refractive amblyopia, right eye; E11.9 Type 2 diabetes mellitus without complications; N40.0 Benign prostatic hyperplasia without lower urinary tract symptoms; Z95.0 Presence of cardiac pacemaker; Z79.84 Long term (current) use of oral hypoglycemic drugs; Z87.891 Personal history of nicotine dependence
CPT/HCPCS: A9270-GY; J2250; V2632

== ENCOUNTER 2017-07-01 09:46 | Day surgery (SDC) | payer MEDICARE, BC ==
[~2017-07-01 09:46] MED LIST changes: -Buffered Lidocaine 0.9% SYRIN* 5 ML/SYR SYRINGE ONE; -Cyclopentolate 1% OPTH.SOL* 2 ML BTL ONE; -Ketorolac 0.5% OPHTH (NF) 0.5 % 5 ML BTL ONE; -Lidocaine 1% MPF* 2 ML VIAL ONE; -Lidocaine 2% EPI 1:200000 MPF* 20 ML VIAL ONE; -Midazolam* 1 MG/ML 5 ML VIAL (5 MG) ONE; -Neomycin/Polymy/Dex OPTH.SUSP* MAXITROL 0.1% 5 ML ONE; -Phenylephrine 2.5% OPTH.SOL* 2 ML BTL ONE; -Povidone Iodine 5% OPTH* 30 ML BTL ONE; -Proparacaine 0.5% OPHTH.SOL* 15 ML BTL ONE; -acetaZOLAMIDE TAB* 250 MG ONE
[2017-07-01] MEDS ORDERED: Midazolam* 1 MG/ML 2 ML VIAL (2 MG) ONE (11:58)
[2017-07-01] MEDS ORDERED: fentaNYL* 50 MCG/ML 2 ML VIAL (100 MCG VIAL) ONE (12:23)
[2017-07-01 12:50] VITALS: BP 177/78
[2017-07-01] MEDS ORDERED: Phenylephrine 2.5% OPTH.SOL* 2 ML BTL ONE (13:03)
[2017-07-01] MEDS ORDERED: Cyclopentolate 1% OPTH.SOL* 2 ML BTL ONE (13:03)
[2017-07-01] MEDS ORDERED: Proparacaine 0.5% OPHTH.SOL* 15 ML BTL ONE (13:03)
[2017-07-01] MEDS ORDERED: Ketorolac 0.5% OPHTH (NF) 0.5 % 5 ML BTL ONE (13:03)
[2017-07-01] MEDS ORDERED: Lidocaine 2% EPI 1:200000 MPF* 20 ML VIAL ONE (13:03)
[2017-07-01] MEDS ORDERED: Neomycin/Polymy/Dex OPTH.SUSP* MAXITROL 0.1% 5 ML ONE (13:03)
[2017-07-01] MEDS ORDERED: acetaZOLAMIDE TAB* 250 MG ONE (13:03)
[2017-07-01] MEDS ORDERED: Povidone Iodine 5% OPTH* 30 ML BTL ONE (13:03)
[2017-07-01] MEDS ORDERED: Lidocaine 1% MPF* 2 ML VIAL ONE (13:03)
--- NOTE | 2017-07-01 13:44 | OP ---
DATE OF OPERATION: 07/01/2017 - [facility] DATE OF : 1930. SURGEON: Baldev Chu M.D. PREOPERATIVE DIAGNOSIS: Cataract left eye. POSTOPERATIVE DIAGNOSIS: Cataract left eye. OPERATIVE PROCEDURE: Extracapsular cataract extraction with intraocular lens implant left eye. DESCRIPTION OF PROCEDURE: The patient was brought to the operating room after being given 1/2% Alcaine with epinephrine drops in the preoperative area. The eye was prepped and draped in the usual sterile fashion. Sterile drape and eyelid speculum were placed. Again, topical 1/2% Alcaine with epinephrine was given. A paracentesis incision was made at the 3 o'clock position with the No.75 blade. Clear cornea incision 2.2 x 2.2-mm was created at the 6 o'clock position starting at the anterior limbus using the 2.2-mm keratome. The anterior chamber was irrigated with 0.4 mL of 1% non-preservative intracameral lidocaine and filled with DisCoVisc. A capsulorrhexis was completed using the cystotome and the Utrata forceps. Hydrodissection was performed with balanced salt solution. The lens nucleus was removed with the Phacoemulsification handpiece without incident. Cortex was removed with the irrigation-aspiration handpiece. The capsular bag was re-inflated using DisCoVisc and an [id number] implant was inserted with the shooter. The irrigation-aspiration handpiece was used to remove all residual DisCoVisc. The eye was refilled with balanced salt solution and the wound checked and found to be watertight. Topical Maxitrol drops were given. [id number]/[facility] #: [id number] [facility]
== END 2017-07-01 13:20 | disposition home or self-care (01) ==
LOC: OREAST 09:46
PROVIDERS: ATTEND Specialist
DX: H25.812 Combined forms of age-related cataract, left eye (principal); H53.021 Refractive amblyopia, right eye; Z95.0 Presence of cardiac pacemaker; E78.5 Hyperlipidemia, unspecified; R00.1 Bradycardia, unspecified; I25.10 Atherosclerotic heart disease of native coronary artery without angina pectoris; I25.2 Old myocardial infarction; E11.42 Type 2 diabetes mellitus with diabetic polyneuropathy; Z79.84 Long term (current) use of oral hypoglycemic drugs; Z87.891 Personal history of nicotine dependence; G25.0 Essential tremor; N40.0 Benign prostatic hyperplasia without lower urinary tract symptoms; M54.2 Cervicalgia; I49.5 Sick sinus syndrome
CPT/HCPCS: A9270-GY; J2250; J3010; V2632

== ENCOUNTER 2017-07-13 09:44 | Emergency (ER) | payer MEDICARE, BC ==
[2017-07-13 11:02] LABS: Hematocrit 39 % (42-52); Hemoglobin 12.9 g/dl (14.0-18.0); Mean Corpuscular HGB Conc 33 g/dl (31-36); Mean Corpuscular Hemoglobin 28 pg (27-31); Mean Corpuscular Volume 84 fL (80-94); Mean Platelet Volume 8 um3 (7.4-10.4); Red Cell Distribution Width 16 % (10.5-15); White Blood Count 5.9 10^3/ul (3.5-10.8)
[2017-07-13 11:16] LABS: BUN/Creatinine Ratio 15.7 (8-20); Calcium 9.4 mg/dL (8.6-10.3); EGFR African American 64.7 (>60); EGFR Non-African American 50.3 (>60); Globulin 3.2 g/dL (2-4); Total Bilirubin 0.6 mg/dL (0.2-1.0); Total Protein 7.2 g/dL (6.4-8.9)
[2017-07-13 11:23] LABS: Troponin I 0.07 ng/mL (<0.04)
[2017-07-13 11:58] LABS: TSH (Thyroid Stimulating Horm) 2.03 mcIU/mL (0.34-5.60)
[2017-07-13 13:05] LABS: Urine Bacteria Absent (Absent); Urine Bilirubin Negative (Negative); Urine Glucose Negative (Negative); Urine Nitrite Negative (Negative)
[2017-07-13 15:29] VITALS: BP 163/81
--- NOTE | 2017-07-13 18:08 | ED ---
Travon Levin Angela, scribed for Sina Francois MD on 07/13/17 at 1033 . Dizziness - HPI Summary HPI Summary: This pt is a 86 y/o male presenting to [facility] referred by wound clinic c/o dizziness since yesterday and elevated blood pressure. Pt reports that he feels "woozy" and this morning his BP was approximately 179/90. He states his blood pressure is normally 140-150. Pt denies any pain, nausea, vomiting. There are no aggravating or alleviating factors. Pt states he just got over a cold, for which he was taking Sienna-[place] plus OTC (stopped taking it 2 days ago). He denies any recent medication changes. He is currently on propranolol (for tremors and HTN) and meloxicam for his neck (prescribed by Dr. Curtis for arthritis). Pt sees Dr. Nam at the wound clinic for an ulcer on his left ankle. Pt had recent cataract surgery on July 01 and is still using eye drops, he has a follow up appointment on . He reports that he has a pacemaker that was placed in February [address] ([address] Grover ) and re-programmed in April 11, but notes that he has felt well since then. - History Of Current Complaint Chief Complaint: EDDizziness Stated Complaint: DIZZINESS,DIFFICULTY BREATHING-SENT F WOUND [facility] Time Seen by Provider: 07/13/17 10:26 Hx Obtained From: Patient Onset/Duration: Still Present Timing: Days Character: Dizzy - "woozy" Aggravating Factor(s): Nothing Alleviating Factor(s): Nothing Associated Signs And Symptoms: Positive: Other: - POS: elevated BP. 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 GROVER FOLLOWS Denies: Hx Peripheral Vascular Disease, Hx Syncope Respiratory History: Reports: Hx Chronic Obstructive Pulmonary Disease (COPD), Other Respiratory Problems/Disorders - PNEUMONIA AGE 14 GI History: Reports: Hx Gastroesophageal Reflux Disease, Hx Hiatal Hernia - STATES HAS NO PROBLEMS WITH Denies: Hx Ulcer History: Reports: Hx Kidney Stones - resolved, Other Problems/Disorders - Some type of prostate surgery Musculoskeletal History: Denies: Hx Arthritis, Hx Osteoporosis Sensory History: Reports: Hx Contacts or Glasses Denies: Hx Cataracts, Hx Glaucoma, Hx Hearing Aid Opthamlomology History: Reports: Hx Contacts or Glasses Denies: Hx Cataracts, Hx Glaucoma Neurological History: Reports: Hx Nerve Disease - diabetic neuropathy, Other Neuro Impairments/Disorders - Essential Tremor Denies: Hx Headaches, Hx Migraine, Hx Seizures, Hx Spinal Cord Injury, Hx Transient Ischemic Attacks (TIA) - Cancer History Cancer Type, Location and Year: Basal cell carcinoma-all over, has had surgery for removal. Cancer under R middle finger nail, part of finger removed-can not remember name Hx Chemotherapy: No - Surgical History Surgery Procedure, Year, and Place: Exploratory Surgeries (92,94,98), Appendectomy, acetabulum repair, total L hip replacement Hx Anesthesia Reactions: No Infectious Disease History: No Infectious Disease History: Reports: Hx Shingles Denies: Hx Clostridium Difficile, Hx Hepatitis, Hx Human Immunodeficiency Virus (HIV), Hx of Known/Suspected MRSA, Traveled Outside the US in Last 30 Days - Family History Known Family History: Negative: Cardiac Disease, Other Family History: No FHx of skin cancer - Social History Alcohol Use: Rare Alcohol Amount: approx 1 beer a month Hx Substance Use: No Substance Use Type: Reports: None Hx Tobacco Use: Yes Smoking Status (MU): Former Smoker Amount Used/How Often: 1 PPD X 15 YEARS? Have You Smoked in the Last Year: No Review of Systems Negative: Fever, Chills Cardiovascular: Other - elevated blood pressure Respiratory: Negative Gastrointestinal: Negative Neurological: Other - dizziness All Other Systems Reviewed And Are Negative: Yes Physical Exam - Summary Physical Exam Summary: Appearance: The patient is well-nourished in no acute distress and in no acute pain. Skin: The skin is warm and dry and skin color reflects adequate perfusion. HEENT: The head is normocephalic and atraumatic. The pupils are equal and reactive. The conjunctivae are clear and without drainage. Nares are patent and without drainage. Mouth reveals moist mucous membranes and the throat is without erythema and exudate. The external ears are intact. The ear canals are patent and without drainage. The tympanic membranes are intact. Neck: the neck is supple with full range of motion and non-tender. There are no carotid bruits. There is no neck vein distension. Respiratory: Chest is non-tender. Lungs are clear to auscultation and breath sounds are symmetrical and equal. Cardiovascular: Heart is regular rate and rhythm. There is no murmur or rub auscultated. There is no peripheral edema and pulses are symmetrical and equal. Pt has elevated blood pressure. Abdomen: The abdomen is soft and non-tender. There are normal bowel sounds heard in all four quadrants and there is no organomegaly palpated. Musculoskeletal: There is no back tenderness noted. Extremities are non-tender with full range of motion. There is good capillary refill. There is no peripheral edema or calf tenderness elicited. Neurological: Patient is alert and oriented to person, place and time. The patient has symmetrical motor strength in all four extremities. Cranial nerves are grossly intact. Deep tendon reflexes are symmetrical and equal in all four extremities. Psychiatric: The patient has an appropriate affect and does not exhibit any anxiety or depression. Triage Information Reviewed: Yes Vital Signs On Initial Exam: Initial Vitals Temp Pulse Resp BP Pulse Ox 97.9 F 82 20 179/97 99 07/13/17 09:48 07/13/17 09:48 07/13/17 09:48 07/13/17 09:48 07/13/17 09:48 Vital Signs Reviewed: Yes - Geff Coma Scale Coma Scale Total: 15 Diagnostics - Vital Signs Vital Signs Temp Pulse Resp BP Pulse Ox 07/13/17 10:16 62 159/84 07/13/17 09:48 97.9 F 82 20 179/97 99 - Laboratory Lab Results: Lab Results 07/13/17 07/13/17 07/13/17 Range/Units 10:54 10:54 10:54 WBC 5.9 (3.5-10.8) 10^3/ul RBC 4.60 (4.0-5.4) 10^6/ul Hgb 12.9 L (14.0-18.0) g/dl Hct 39 L (42-52) % MCV 84 (80-94) fL MCH 28 (27-31) pg MCHC 33 (31-36) g/dl RDW 16 H (10.5-15) % Plt Count 213 (150-450) 10^3/ul MPV 8 (7.4-10.4) um3 Neut % (Auto) 63.7 (38-83) % Lymph % (Auto) 23.6 L (25-47) % [place] % (Auto) 9.8 H (1-9) % Eos % (Auto) 2.1 (0-6) % Baso % (Auto) 0.8 (0-2) % Absolute Neuts (auto) 3.7 (1.5-7.7) 10^3/ul Absolute Lymphs (auto) 1.4 (1.0-4.8) 10^3/ul Absolute Monos (auto) 0.6 (0-0.8) 10^3/ul Absolute Eos (auto) 0.1 (0-0.6) 10^3/ul Absolute Basos (auto) 0 (0-0.2) 10^3/ul Absolute Nucleated RBC 0 10^3/ul Nucleated RBC % 0 Sodium 138 (133-145) mmol/L Potassium 5.0 (3.5-5.0) mmol/L Chloride 104 (101-111) mmol/L Carbon Dioxide 30 (22-32) mmol/L Anion Gap 4 (2-11) mmol/L BUN 21 (6-24) mg/dL Creatinine 1.34 H (0.67-1.17) mg/dL Est GFR ( Amer) 64.7 (>60) Est GFR (Non-Af Amer) 50.3 (>60) BUN/Creatinine Ratio 15.7 (8-20) Glucose 134 H (70-100) mg/dL Lactic Acid 0.9 (0.5-2.0) mmol/L Calcium 9.4 (8.6-10.3) mg/dL Magnesium 2.0 (1.9-2.7) mg/dL Total Bilirubin 0.60 (0.2-1.0) mg/dL AST 28 (13-39) U/L ALT 25 (7-52) U/L Alkaline Phosphatase 78 (34-104) U/L Troponin I 0.07 H* (<0.04) ng/mL Total Protein 7.2 (6.4-8.9) g/dL Albumin 4.0 (3.2-5.2) g/dL Globulin 3.2 (2-4) g/dL Albumin/Globulin Ratio 1.3 (1-3) TSH 2.03 (0.34-5.60) mcIU/mL Urine Color Urine Appearance Urine pH (5-9) Ur Specific Badger (1.010-1.030) Urine Protein (Negative) Urine Ketones (Negative) Urine Blood (Negative) Urine Nitrate (Negative) Urine Bilirubin (Negative) Urine Urobilinogen (Negative) Ur Leukocyte Esterase (Negative) Urine WBC (Auto) (Absent) Urine RBC (Auto) (Absent) Urine Bacteria (Absent) Urine Glucose (Negative) 07/13/17 07/13/17 Range/Units 12:43 14:05 WBC (3.5-10.8) 10^3/ul RBC (4.0-5.4) 10^6/ul Hgb (14.0-18.0) g/dl Hct (42-52) % MCV (80-94) fL MCH (27-31) pg MCHC (31-36) g/dl RDW (10.5-15) % Plt Count (150-450) 10^3/ul MPV (7.4-10.4) um3 Neut % (Auto) (38-83) % Lymph % (Auto) (25-47) % [place] % (Auto) (1-9) % Eos % (Auto) (0-6) % Baso % (Auto) (0-2) % Absolute Neuts (auto) (1.5-7.7) 10^3/ul Absolute Lymphs (auto) (1.0-4.8) 10^3/ul Absolute Monos (auto) (0-0.8) 10^3/ul Absolute Eos (auto) (0-0.6) 10^3/ul Absolute Basos (auto) (0-0.2) 10^3/ul Absolute Nucleated RBC 10^3/ul Nucleated RBC % Sodium (133-145) mmol/L Potassium (3.5-5.0) mmol/L Chloride (101-111) mmol/L Carbon Dioxide (22-32) mmol/L Anion Gap (2-11) mmol/L BUN (6-24) mg/dL Creatinine (0.67-1.17) mg/dL Est GFR ( Amer) (>60) Est GFR (Non-Af Amer) (>60) BUN/Creatinine Ratio (8-20) Glucose (70-100) mg/dL Lactic Acid (0.5-2.0) mmol/L Calcium (8.6-10.3) mg/dL Magnesium (1.9-2.7) mg/dL Total Bilirubin (0.2-1.0) mg/dL AST (13-39) U/L ALT (7-52) U/L Alkaline Phosphatase (34-104) U/L Troponin I 0.07 H* (<0.04) ng/mL Total Protein (6.4-8.9) g/dL Albumin (3.2-5.2) g/dL Globulin (2-4) g/dL Albumin/Globulin Ratio (1-3) TSH (0.34-5.60) mcIU/mL Urine Color Straw Urine Appearance Clear Urine pH 8.0 (5-9) Ur Specific [place] 1.006 L (1.010-1.030) Urine Protein Negative (Negative) Urine Ketones Negative (Negative) Urine Blood 1+ H (Negative) Urine Nitrate Negative (Negative) Urine Bilirubin Negative (Negative) Urine Urobilinogen Negative (Negative) Ur Leukocyte Esterase 3+ H (Negative) Urine WBC (Auto) 3+(>20/hpf) H (Absent) Urine RBC (Auto) 1+(3-5/hpf) H (Absent) Urine Bacteria Absent (Absent) Urine Glucose Negative (Negative) Result Diagrams: 07/13/17 10:54 07/13/17 10:54 Lab Statement: Any lab studies that have been ordered have been reviewed, and results considered in the medical decision making process. - EKG 10:44 Cardiac Rate: NL EKG Interpretation: Paced rhythm at 60 bpm Re-Evaluation - Re-Evaluation First Eval Re-Evaluation Time: 15:15 Comment: I reviewed the lab results with the pt. Dizzy Course/Dx - Course Course Of Treatment: Mr. Diaz presented feeling 'woozy' and concerned that his BP has been elevated for a couple days. He had URI symptoms last week and was taking sienna-seltzer plus up until two days ago. He was observed here and his BP 's ran a bit high but not too bad. Labs were OK including two troponins. I will refer him back to Dr. Dixon. This could be related to the cold medicines. - Diagnoses Provider Diagnoses: Hypertension Discharge - Discharge Plan Condition: Stable Disposition: HOME Patient Education Materials: Hypertension (ED) Referrals: Álvaro Dixon MD [Primary Care Provider] - Additional Instructions: Please follow up with your primary care provider, Dr. Dixon, this week. RETURN TO THE ED FOR ANY WORSENING SYMPTOMS. The documentation as recorded by the Travon rudolph Angela accurately reflects the service I personally performed and the decisions made by me, Sina Francois MD.
--- NOTE | 2017-07-15 12:16 | PN ---
Progress Note - Progress Note Date of Service: 07/15/17 Note: Patient urine culture grew Entercoccus faecalis >100,000. sent script for cipro 500mg bid x7days which is sensitive to. spoke with patient and he understands plan.
== END 2017-07-13 15:29 | disposition home or self-care (01) ==
LOC: ED 09:44
DX: I10 Essential (primary) hypertension (principal); K21.9 Gastro-esophageal reflux disease without esophagitis; Z88.0 Allergy status to penicillin; I25.10 Atherosclerotic heart disease of native coronary artery without angina pectoris; I20.9 Angina pectoris, unspecified; Z86.718 Personal history of other venous thrombosis and embolism; E78.00 Pure hypercholesterolemia, unspecified; I25.2 Old myocardial infarction; J44.9 Chronic obstructive pulmonary disease, unspecified; Z87.891 Personal history of nicotine dependence; N39.0 Urinary tract infection, site not specified; B95.2 Enterococcus as the cause of diseases classified elsewhere; B96.89 Other specified bacterial agents as the cause of diseases classified elsewhere
CPT/HCPCS: 36415; 80053; 81003; 81015; 83605; 83735; 84443; 84484; 85025; 86618; 87077; 87086; 87186; 93005; 99282

== ENCOUNTER 2018-04-24 15:10 | Inpatient (IN) | payer MEDICARE, BC ==
--- NOTE | 2018-04-24 16:10 | RAD ---
HISTORY: fall, left hip injury COMPARISONS: None VIEWS: 9 , Frontal, lateral, and oblique views of the left hip with frontal and lateral views of the left femur FINDINGS: BONE DENSITY: There is diffuse osteopenia. BONES: The patient is status post left hip arthroplasty and internal fixation of the acetabulum. There is a periprosthetic intertrochanteric fracture with mild displacement of the greater trochanter. JOINTS: The patient is status post left hip arthroplasty. Degenerative changes are noted of the spine. ALIGNMENT: There is no dislocation. SOFT TISSUES: Unremarkable. OTHER FINDINGS: None. IMPRESSION: STATUS POST LEFT HIP ARTHROPLASTY WITH A PERIPROSTHETIC FRACTURE THROUGH THE PROXIMAL FEMUR
[2018-04-24 16:55] LABS: ABS Basophils 0.1 10^3/ul (0-0.2); ABS Eosinophils 0.2 10^3/ul (0-0.6); ABS Lymphocytes 1.5 10^3/ul (1.0-4.8); ABS Monocytes 0.6 10^3/ul (0-0.8); ABS Neutrophils 5.8 10^3/ul (1.5-7.7); ABS Nucleated RBC 0 10^3/ul; Hematocrit 35 % (42-52); Hemoglobin 11.6 g/dl (14.0-18.0); Lymphocyte % 18.5 % (25-47); Mean Corpuscular HGB Conc 34 g/dl (31-36); Mean Corpuscular Hemoglobin 29 pg (27-31); Mean Corpuscular Volume 86 fL (80-94); Mean Platelet Volume 7.7 um3 (7.4-10.4); Nucleated Red Blood Cells % 0.2; Platelet Count 245 10^3/ul (150-450); Red Blood Count 4.02 10^6/ul (4.00-5.40); Red Cell Distribution Width 14 % (10.5-15); White Blood Count 8.1 10^3/ul (3.5-10.8)
--- NOTE | 2018-04-24 16:59 | ED ---
Lower Extremity - HPI Summary HPI Summary: Patient is an 87-year-old male with a history of a left-sided total hip replacement which was done in [place] in 1997 presenting to the ED s/p mechanical fall onto the L hip/femur area. He is endorsing pain to the left side of the femur near the hip. There is no swelling or ecchymosis noted. Denies any knee pain. Denies any rib pain or other discomfort. He states pain is only on direct palpation of the femur. He states he is very active and otherwise healthy. Medications are up-to-date in the system. He states he has a pacemaker which was placed last year, however has had no problems with his pacemaker or the prosthetic over the past 20 years. He was scheduled for a follow-up visit to Dr. Henriquez within this year, but has not seen her yet. - History of Current Complaint Chief Complaint: EDExtremityLower Stated Complaint: FALL HIP INJURY Time Seen by Provider: 04/24/18 15:13 Hx Obtained From: Patient Mechanism Of Injury: Direct Blow Onset of Pain: Hours Onset/Duration: Hours Severity Initially: Moderate Severity Currently: Moderate Pain Intensity: 96 Pain Scale Used: 0-10 Numeric Timing: Constant Location: Is Discrete @ - left hip pain Character Of Pain: Aching Associated Signs And Symptoms: Negative: Swelling, Redness, Bruising Aggravating Factor(s): Standing, Ambulation Alleviating Factor(s): Rest Able to Bear Weight: No - Risk Factors Gout Risk Factors: Negative DVT Risk Factors: Negative Septic Arthritis Risk Factor: Negative - Allergies/Home Medications Allergies/Adverse Reactions: Allergies Allergy/AdvReac Type Severity Reaction Status Date / Time MS Penicillins [PCN] Allergy BLISTERS Verified 07/13/17 09:51 ON HANDS AND FEET PMH/Surg Hx/FS Hx/Imm Hx Previously Healthy: Yes Endocrine/Hematology History: Reports: 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 CABALLERO FOLLOWS Denies: Hx Peripheral Vascular Disease, Hx Syncope Respiratory History: Reports: Hx Chronic Obstructive Pulmonary Disease (COPD), Other Respiratory Problems/Disorders - PNEUMONIA AGE 14 GI History: Reports: Hx Gastroesophageal Reflux Disease, Hx Hiatal Hernia - STATES HAS NO PROBLEMS WITH Denies: Hx Ulcer History: Reports: Hx Kidney Stones - resolved, Other Problems/Disorders - Some type of prostate surgery Musculoskeletal History: Denies: Hx Arthritis, Hx Osteoporosis Sensory History: Reports: Hx Contacts or Glasses Denies: Hx Cataracts, Hx Glaucoma, Hx Hearing Aid Opthamlomology History: Reports: Hx Contacts or Glasses Denies: Hx Cataracts, Hx Glaucoma Neurological History: Reports: Hx Nerve Disease - diabetic neuropathy, Other Neuro Impairments/Disorders - Essential Tremor Denies: Hx Headaches, Hx Migraine, Hx Seizures, Hx Spinal Cord Injury, Hx Transient Ischemic Attacks (TIA) - Cancer History Cancer Type, Location and Year: Basal cell carcinoma-all over, has had surgery for removal. Cancer under R middle finger nail, part of finger removed-can not remember name Hx Chemotherapy: No - Surgical History Surgery Procedure, Year, and Place: Exploratory Surgeries (92,94,98), Appendectomy, acetabulum repair, total L hip replacement Hx Anesthesia Reactions: No - Immunization History Hx Pertussis Vaccination: Yes Immunizations Up to Date: Yes Infectious Disease History: No Infectious Disease History: Reports: Hx Shingles Denies: Hx Clostridium Difficile, Hx Hepatitis, Hx Human Immunodeficiency Virus (HIV), Hx of Known/Suspected MRSA, Traveled Outside the [place] in Last 30 Days - Family History Known Family History: Negative: Cardiac Disease, Other Family History: No FHx of skin cancer - Social History Occupation: Unemployed Lives: Alone Alcohol Use: Rare Alcohol Amount: approx 1 beer a month Hx Substance Use: No Substance Use Type: Reports: None Hx Tobacco Use: Yes Smoking Status (MU): Former Smoker Amount Used/How Often: 1 PPD X 15 YEARS? Have You Smoked in the Last Year: No Review of Systems Constitutional: Negative Negative: Fever, Chills, Fatigue, Skin Diaphoresis Negative: Palpitations, Chest Pain Negative: Shortness Of Breath, Cough Negative: Abdominal Pain, Vomiting, Diarrhea, Nausea Genitourinary: Negative Positive: no symptoms reported, see HPI Positive: Arthralgia - left hip and femur pain Positive: Rash. Negative: Bruising Neurological: Negative All Other Systems Reviewed And Are Negative: Yes Physical Exam Triage Information Reviewed: Yes Vital Signs On Initial Exam: Initial Vitals Temp Pulse Resp BP Pulse Ox 97.1 F 64 16 180/83 96 04/24/18 16:04 04/24/18 16:04 04/24/18 16:04 04/24/18 16:04 04/24/18 16:04 Vital Signs Reviewed: Yes Appearance: Positive: Well-Appearing, Well-Nourished Skin: Positive: Warm, Skin Color Reflects Adequate Perfusion Head/Face: Positive: Normal Head/Face Inspection Eyes: Positive: EOMI, SHANKAR, Conjunctiva Clear Neck: Positive: Supple, No Lymphadenopathy Cardiovascular: Positive: RRR, Pulses are Symmetrical in both Upper and Lower Extremities Musculoskeletal: Positive: Pain @ - left hip and femur pain Neurological: Positive: Sensory/Motor Intact, Alert, Oriented to Person Place, Time, Speech Normal Psychiatric: Positive: Affect/Mood Appropriate AVPU Assessment: Alert Diagnostics - Vital Signs Vital Signs Temp Pulse Resp BP Pulse Ox 04/24/18 16:04 97.1 F 64 16 180/83 96 - Laboratory Result Diagrams: 04/24/18 16:45 04/24/18 16:45 Lab Statement: Any lab studies that have been ordered have been reviewed, and results considered in the medical decision making process. Lower Extremity Course/Dx - Course Course Of Treatment: During the course treatment, the patient is evaluated for left hip injury after a mechanical fall. The impression of the left hip 2 views and pelvis shows a status post left hip arthroplasty with a periprosthetic fracture through the proximal femur. He continues to be able to move about the hip, but with limitations. I discussed this case with hospitalist who agrees to come see patient and admit. Orthopedics will follow up with patient tomorrow. - Diagnoses Differential Diagnosis/HQI/PQRI: Positive: Fracture (Closed), Fracture (Open), Sprain, Strain Provider Diagnoses: Shannon-prosthetic femoral shaft fracture - Physician Notifications Discussed Care Of Patient With: montserrat Stern - ortho Discharge - Sign-Out/Discharge Documenting (check all that apply): Patient Departure - Discharge Plan Condition: Stable Disposition: ADMITTED TO [facility] Referrals: Álvaro Dixon MD [Primary Care Provider] - - Billing Disposition and Condition Condition: STABLE Disposition: Admitted to [facility]
[2018-04-24 17:15] LABS: EGFR Non-African American 46.2 (>60)
[2018-04-24] MEDS ORDERED: Acetaminophen TAB* 325 MG PO PRN (18:15)
[2018-04-24] MEDS ORDERED: Dextrose 50% Syringe 50 ML* 25 GM/50 ML SYRINGE IV PUSH PRN (18:16)
[2018-04-24] MEDS ORDERED: oxyCODONE TAB* 5 MG TAB PO PRN (18:17)
--- NOTE | 2018-04-24 19:47 | HP ---
CC: Dr. Dixon * [facility] MEDICINE HISTORY AND PHYSICAL: DATE OF ADMISSION: 04/24/18 PRIMARY CARE PHYSICIAN: Dr. Dixon. ATTENDING PHYSICIAN: Dr. Amauri Quinones * (dictation provided by Linh Goodrich NP ). CHIEF COMPLAINT: Fall with left hip pain. HISTORY OF PRESENT ILLNESS: Mr. Diaz is an 87-year-old male with past medical history of sick sinus syndrome, status post pacemaker placement; non-insulin- dependent diabetes; history of CAD with OR, who presents to the hospital today with concern for fall and left hip pain. The patient states that he was out today at the [employer] in [place], he was walking on the sidewalk when he stubbed his toe on the uneven sidewalk and fell to the ground on his left side. He denies losing any consciousness. He denies feeling faint. He had immediate pain to his left hip and EMS was called to bring him to the emergency room. The patient has a history of a left hip replacement several years ago and has followed with Dr. Henriquez. The patient states that he has been feeling well in recent days. He has had no acute health complaints. He states that he is very active and he walks up and down stairs multiple times per day. He has no chest pain, no shortness of breath with this level of activity. He denies any recent fevers, chills, nausea, vomiting, diarrhea, abdominal pain. He has been tolerating oral intake well. Mr. Diaz had a hip and pelvis x-ray in the emergency room, which showed the following: "Status post left hip arthroplasty with a periprosthetic fracture through the proximal femur." He had a femur x-ray, which showed "status post left hip arthroplasty with a periprosthetic fracture through the proximal femur. " His labs were remarkable only for a very mild bump in his troponin to 0.04. He has chronic kidney disease and the BUN and creatinine are at baseline. PAST MEDICAL HISTORY: 1. Sick sinus syndrome with pacemaker placement. 2. History of [id number] type 2 diabetes. 3. Chronic obstructive pulmonary disease. 4. History of coronary artery disease. 5. Nephrolithiasis. 6. Cholelithiasis. 7. Hypertension. 8. Essential tremor. 9. History of benign prostatic hypertrophy. 10. Chronic kidney disease. MEDICATIONS: Outpatient are: 1. [place]-3 fatty acids 1200 mg p.o. b.i.d. 2. Nitroglycerin 0.4 mg sublingually q.5 minutes p.r.n. 3. Multivitamin with mineral 1 tab p.o. q.a.m. 4. Meloxicam 15 mg p.o. q.a.m. 5. Finasteride 5 mg p.o. q.a.m. 6. Cyanocobalamin 1000 mcg p.o. q.a.m. 7. Acetaminophen 500 mg p.o. q.a.m. 8. Vitamin D3 2000 units p.o. q.a.m. 9. Aspirin 81 mg p.o. q.p.m. 10. Tylenol 500 mg p.o. at bedtime. 11. Metformin 500 mg p.o. q.p.m. 12. CoQ10 400 mg p.o. q.a.m. 13. Simvastatin 20 mg p.o. q.p.m. 14. Propranolol 20 mg p.o. b.i.d., taking for tremors. 15. Omeprazole 20 mg p.o. q.a.m. ALLERGIES: To PENICILLINS. FAMILY HISTORY: Positive for coronary artery disease, hypertension, lung cancer , bladder cancer, and pancreatic cancer. SOCIAL HISTORY: The patient is a former smoker, but he quit at least 40 years ago. No report of alcohol or drug use. He lives alone. He states that his daughter, Cely, will be the healthcare proxy, but he also has support from Suki, who I believe is, his niece and is at the bedside today. REVIEW OF SYSTEMS: A 14-point review of systems was completed with Mr. Diaz and all those not mentioned above were negative. PHYSICAL EXAMINATION GENERAL: Mr. Diaz is lying in the bed. He is in no acute distress. His family member, Suki, is at the bedside. VITAL SIGNS: Temperature 97.1, pulse rate 61, respiratory rate 16, O2 saturation 97% on room air, blood pressure 141/78. LUNGS: Clear to auscultation bilaterally with no accessory muscle use and good aeration. HEART: S1, S2. No murmur, rub, or gallop and regular. ABDOMEN: Soft, nontender with bowel sounds positive x4. EXTREMITIES: No cyanosis or edema. NEURO: He is alert, he is oriented x3. He moves all extremities equally. There is no facial asymmetry or focal weakness. Extraocular movements are intact. SKIN: Intact. DIAGNOSTIC STUDIES/LAB DATA: Sodium 136, potassium 5.0, chloride 102, serum bicarbonate 30, BUN 29, creatinine 1.44, glucose 234. Troponin 0.04. CRP 5.65. WBC 8.1, hemoglobin 11.6, hematocrit 35, platelet count 245. ESR 39. X-rays are as per above. The EKG shows an A paced rhythm, 100% paced at 60. ASSESSMENT AND PLAN: Mr. Diaz is an 87-year-old male with a past medical history of a left hip replacement, diabetes, coronary artery disease with myocardial infarction, and pacemaker for sick sinus syndrome, who presents today to the hospital after a mechanical fall resulting in a left periprosthetic fracture. Our plans are for inpatient admission as I expect his length of stay to be greater than 2 days for the followin. Left periprosthetic hip fracture. The patient denies any symptoms consistent with fainting or syncope and it was purely a mechanical fall. He states he has been in good state of health recently. Our plans will be for consultation with orthopedic services regarding need for possible surgery. In terms of cardiac risk, the patient has history of ischemic heart disease. This is the only risk factor. He does have diabetes, but he is not treated with insulin. He has an elevated creatinine, but it is not greater than 2. Therefore, he has a 1% risk of untoward cardiac event related to the surgery. He states that he is easily able to obtain 4 METs of activity with no chest pain or shortness of breath. He does not appear to be in heart failure, has no lower extremity edema, and his lungs are clear. I think no cardiac testing is indicated and he is medically optimized to proceed with surgery. 2. Elevated troponin. Plan to repeat x2. The patient has no evidence of chest pain or cardiac equivalent, but we will repeat troponins given the mild elevation. 3. Type 2 diabetes. Plan to hold metformin and we will have blood glucoses q.a.c. with lispro sliding scale. 4. Tremor. Continue propranolol. 5. History of coronary artery disease. Hold aspirin for tonight pending plan for surgery. 6. Hyperlipidemia. Continue simvastatin. 7. Code status is full code. This was reviewed at length with the patient at the bedside. 8. Disposition. To surgical floor. TIME SPENT: Approximately 60 minutes was spent on the admission of this patient , more than half the time spent with the patient at the bedside reviewing the events leading up to this hospitalization, performing the physical examination, and reviewing my plan of care. LINH GOODRICH NP [id number]/[facility] #: [id number] JOSE
[2018-04-24] MEDS: Propranolol TAB* 10 MG PO SCH (22:03)
[2018-04-24] MEDS: Heparin VIAL(*) 5000 UNITS/ML VIAL (FIVE THOUSAND) SUBCUT SCH (22:04)
[2018-04-25] MEDS: Heparin VIAL(*) 5000 UNITS/ML VIAL (FIVE THOUSAND) SUBCUT SCH ×3 (05:37→21:29)
[2018-04-25] MEDS: Omeprazole CAP* 20 MG PO SCH (07:51)
--- NOTE | 2018-04-25 08:14 | PN ---
Subjective Date of Service: 04/25/18 Interval History: Mr. Diaz denies complaint today. He reports minimal to no pain in his left hip. He confirms the presence of a chronic intermittent left medial ankle wound over the past several years. He think Objective Active Medications: Acetaminophen (Tylenol Tab*) 650 mg PO Q6H PRN Atorvastatin Calcium (Lipitor*) 10 mg PO QPM AMAIRANI Cyanocobalamin (Vitamin B12 Tab*) 1,000 mcg PO QAM AMAIRANI Dextrose (D50w Syringe 50 Ml*) 12.5 gm IV PUSH .FOR FS < 60 - SS PRN Finasteride (Proscar Tab*) 5 mg PO QAM AMAIRANI Heparin Sodium (Porcine) (Heparin Vial(*)) 5,000 units SUBCUT Q8HR AMAIRANI Insulin Human Lispro (Humalog*) 0 units SUBCUT AC AMAIRANI; Protocol Multivitamins/Minerals (Theragran/Minerals Tab*) 1 tab PO QAM AMAIRANI Omeprazole (Prilosec Cap*) 20 mg PO 0730 AMAIRANI Oxycodone HCl (Roxycodone Tab*) 5 mg PO Q4H PRN Propranolol HCl (Inderal Tab*) 20 mg PO BID AMAIRANI Vital Signs: Temp Pulse Resp BP Pulse Ox 98.5 F 62 16 136/64 95 04/25/18 03:25 04/25/18 03:25 04/25/18 03:25 04/25/18 03:25 04/25/18 03:25 Oxygen Devices in Use Now: None Appearance: Male sitting up in chair in NAD Eyes: No Scleral Icterus Ears/Nose/Mouth/Throat: Mucous Membranes Moist Neck: Trachea Midline Respiratory: Symmetrical Chest Expansion and Respiratory Effort, Clear to Auscultation Cardiovascular: NL Sounds; No Murmurs; No JVD, No Edema Abdominal: NL Sounds; No Tenderness; No Distention Extremities: No Edema Skin: - - 3 small ulcerations to medial ankle, largest approx 2 cm across, no drainage or erythema Neurological: Alert and Oriented x 3, NL Muscle Strength and Tone Nutrition: Taking PO's Result Diagrams: 04/24/18 16:45 04/24/18 16:45 Assess/Plan/Problems-Billing Assessment: Mr. Diaz is an 87 yo male with a hx of CAD with FL, DM, and Left hip ORIF who was admitted on 04/24/18 after a fall with a periprosthetic left hip fracture. - Patient Problems (1) Periprosthetic hip fracture Comment: - Management per ortho, non-operative - Pain meds prn - Follow up Dr. Henriquez outpatient in 1 week - PT recommends further therapy, PMRU consult placed (2) BPH (benign prostatic hyperplasia) Comment: - Continue finasteride (3) CAD (coronary artery disease) Comment: - Resume aspirin (4) CKD (chronic kidney disease) stage 3, GFR 30-59 ml/min Current Visit: No Comment: - Creatinine at baseline (5) Elevated troponin Comment: - Trops peaked at 0.04, suspect secondary to demand ischemia with trauma and fall. (6) Type 2 diabetes mellitus Comment: - BGs 230s - Continue Lispro SS. (7) DVT prophylaxis Comment: - SQ heparin. (8) Full code status Status and Disposition: Inpatient. Anticipate may need rehab, previously living independently.
[2018-04-25] MEDS ORDERED: Docusate CAP* 100 MG PO PRN (08:15)
[2018-04-25] MEDS ORDERED: Polyethylene Glycol 3350* 17 GM PACKET PO PRN (08:16)
[2018-04-25] MEDS: Insulin LISPRO* 1 UNITS UNIT SUBCUT SCH ×3 (09:22→17:35)
[2018-04-25] MEDS: Propranolol TAB* 10 MG PO SCH ×2 (09:23→21:28)
[2018-04-25] MEDS: Cyanocobalamin TAB* 500 MCG PO SCH (09:24)
[2018-04-25] MEDS: Multivitamins/Minerals TAB PO SCH (09:24)
[2018-04-25] MEDS: Finasteride TAB* 5 MG PO SCH (09:24)
--- NOTE | 2018-04-25 10:46 | CONSULT ---
Consult Consult: Orthopedic Surgery Consultation Date: 04/25/2018 Requesting Service: ER Chief Complaint: Left hip pain. History: 87M with significant PMH s/p mechanical fall with isolated left hip pain. He had a Left GIOVANNI about 20 years ago and also an acetabulum ORIF. He reports pain has greatly improved from yesterday. Described as intermittent, mild, dull. No numbness or tingling. Review of Systems: Negative for fever, recent visual changes, difficulty swallowing, chest pain, shortness of breath, abdominal pain, hematuria, easy bruising, diffuse weakness or lack of coordination, and diffuse rash. PMH: CAD and [place], pacemaker, DVT, high cholesterol, HTN, COPD, CKD, T2DM, BPH, dysplastic nevi PSH: GIOVANNI, acetabulum ORIF, prostate surgery, pacemaker, laparotomies x3, appendectomy, distal phalanx amp Home Medications: Aspirin 81 mg CHEW TAB* 81 mg PO QPM 01/09/16 [History Confirmed 04/24/18] Cholecalciferol [Vitamin D3] 2,000 unit PO QAM 01/09/16 [History Confirmed 04/24] Cyanocobalamin TAB* [Vitamin B12 TAB*] 1,000 mcg PO QAM 01/09/16 [History Confirmed 04/24/18] Omeprazole CAP* [Prilosec CAP* 20 MG] 20 mg PO QAM 01/09/16 [History Confirmed 04/24/18] metFORMIN* [Glucophage 500 MG TAB *] 500 mg PO QPM 01/09/16 [History Confirmed 04/24/18] Finasteride TAB* [Proscar TAB*] 5 mg PO QAM 02/20/17 [History Confirmed 04/24/18 ] Multivitamins/Minerals TAB* [Theragran/minerals TAB*] 1 tab PO QAM 02/20/17 [ History Confirmed 04/24/18] Nitroglycerin TAB 0.4 MG* 0.4 mg SL Q5M PRN 02/20/17 [History Confirmed 04/24/18 ] [place]-3 Fatty Acids (Nf) [Fish Oil (NF)] 1,200 mg PO BID 02/20/17 [History Confirmed 04/24/18] Ubidecarenone [Co Q-10] 400 mg PO QAM 02/20/17 [History Confirmed 04/24/18] Simvastatin TAB(NF) [Zocor 20 MG (NF)] 20 mg PO QPM #0 02/21/17 [Rx Confirmed ] Cinnamon 500 mg PO QAM 02/25/17 [History Confirmed 04/24/18] Meloxicam [Mobic] 15 mg PO QAM 04/07/17 [History Confirmed 04/24/18] Acetaminophen [Acetaminophen Extra Stren] 500 mg PO BEDTIME 06/22/17 [History Confirmed 04/24/18] Propranolol TAB* [Inderal TAB*] 20 mg PO BID 06/22/17 [History Confirmed ] Allergies:penicillins SH: former smoker, rare alcohol, FH: CAD, HTN, lung cancer, bladder cancer, pancreatic cancer Physical Examination: Constitutional: Temp Pulse Resp BP Pulse Ox 98.4 F 67 16 147/64 95 04/25/18 08:18 04/25/18 08:18 04/25/18 08:18 04/25/18 08:18 04/25/18 08:18 General appearance is healthy and non-septic in no acute distress. Cardiovascular: Pulse examination demonstrates positive peripheral pulses with brisk capillary refill. There are LE varicosities. Abdomen: Soft and nontender Lymphatic: No lymphadenopathy appreciated. Skin: Small abrasion at anterior knee but otherwise intact Psychiatric / Neurological: Appropriate affect. Alert and oriented to person, place and time. There is no significant abnormality in coordination appreciated. Normoreflexive deep tendon reflex of the affected extremity. Musculoskeletal: Bilateral upper extremities and contralateral lower extremity show full range of motion with no evidence of instability and no tenderness with palpation and 5 /5 strength. There is no gross deformity. The extremity is not shortened or ER Skin intact 5/5 motor strength distally with intact sensation to light touch There is no global swelling, edema, or varicosities. No pain with logroll, heel strike, PROM of the hip No TTP at knee, lower leg, ankle, foot and painless ROM Palpable DP pulse. Imaging: X-rays were obtained, and independently interpreted and show prior hardware from GIOVANNI and acetabulum ORIF. There is a displaced GT fracture and the fracture line does appear to extend to the LT, where there is no displacement. Labs: WBC 8.1 HCT 35 Platelets 245 Cr 1.44 Trop 0.04 -> 0.03 -> 0.03 Impression and Plan: Left hip periprosthetic fracture. He has no pain on exam today even with extensive ROM. We discussed options and will plan on a trial of nonoperative treatment with protected WB LLE with a walker, PT consult. Once ambulating please obtain new left hip xrays to assess for displacement. If significant pain with ambulation or further displacement then surgery may be needed. He will need close f/u and should f/u in [address] Henriquez. I recommend mechanical and chemical DVT prophylaxis given his lessened mobility. Jerman Fields MD
[2018-04-25] MEDS: Atorvastatin* 10 MG TAB PO SCH (17:34)
[2018-04-25] MEDS ORDERED: Aspirin 81 mg CHEW TAB* 81 MG TAB.CHEW PO SCH (18:00)
[2018-04-25] MEDS: Senna TAB PO SCH (21:28)
[2018-04-26] MEDS: Heparin VIAL(*) 5000 UNITS/ML VIAL (FIVE THOUSAND) SUBCUT SCH ×3 (05:51→21:57)
[2018-04-26] MEDS: Omeprazole CAP* 20 MG PO SCH (07:47)
[2018-04-26] MEDS: Finasteride TAB* 5 MG PO SCH (07:47)
[2018-04-26] MEDS: Insulin LISPRO* 1 UNITS UNIT SUBCUT SCH ×3 (07:47→17:43)
[2018-04-26] MEDS: Aspirin 81 mg CHEW TAB* 81 MG TAB.CHEW PO SCH (07:48)
[2018-04-26] MEDS: Propranolol TAB* 10 MG PO SCH ×2 (07:48→20:51)
[2018-04-26] MEDS: Multivitamins/Minerals TAB PO SCH (07:48)
[2018-04-26] MEDS: Cyanocobalamin TAB* 500 MCG PO SCH (07:48)
--- NOTE | 2018-04-26 12:30 | PN ---
Subjective Date of Service: 04/26/18 Interval History: Mr. Diaz denies complaint today. He states that his pain is well controlled and that he is doing well with physical therapy. Objective Active Medications: Acetaminophen (Tylenol Tab*) 650 mg PO Q6H PRN Aspirin (Aspirin 81 Mg Chew Tab*) 81 mg PO DAILY AMAIRANI Atorvastatin Calcium (Lipitor*) 10 mg PO QPM AMAIRANI Cyanocobalamin (Vitamin B12 Tab*) 1,000 mcg PO QAM AMAIRANI Dextrose (D50w Syringe 50 Ml*) 12.5 gm IV PUSH .FOR FS < 60 - SS PRN Docusate Sodium (Colace Cap*) 100 mg PO DAILY PRN Finasteride (Proscar Tab*) 5 mg PO QAM AMAIRANI Heparin Sodium (Porcine) (Heparin Vial(*)) 5,000 units SUBCUT Q8HR AMAIRANI Insulin Human Lispro (Humalog*) 0 units SUBCUT AC AMAIRANI; Protocol Multivitamins/Minerals (Theragran/Minerals Tab*) 1 tab PO QAM AMAIRANI Omeprazole (Prilosec Cap*) 20 mg PO 0730 AMAIRANI Polyethylene Glycol/Electrolytes (Miralax*) 17 gm PO DAILY PRN Propranolol HCl (Inderal Tab*) 20 mg PO BID AMAIRANI Senna (Senokot Tab*) 1 tab PO BEDTIME [facility] Vital Signs: Temp Pulse Resp BP Pulse Ox 97.9 F 60 16 125/62 97 04/26/18 07:27 04/26/18 07:27 04/26/18 07:54 04/26/18 07:27 04/26/18 07:27 Oxygen Devices in Use Now: None Appearance: Male lying in bed in NAD Eyes: No Scleral Icterus Ears/Nose/Mouth/Throat: Mucous Membranes Moist Respiratory: Symmetrical Chest Expansion and Respiratory Effort, Clear to Auscultation Cardiovascular: NL Sounds; No Murmurs; No JVD, No Edema Abdominal: NL Sounds; No Tenderness; No Distention Extremities: No Edema Skin: No Rash or Ulcers Neurological: Alert and Oriented x 3, NL Muscle Strength and Tone Nutrition: Taking PO's Result Diagrams: 04/24/18 16:45 04/24/18 16:45 Assess/Plan/Problems-Billing Assessment: Mr. Diaz is an 87 yo male with a hx of CAD with [place], DM, and Left hip ORIF who was admitted on 04/24/18 after a fall with a periprosthetic left hip fracture. - Patient Problems (1) Periprosthetic hip fracture Comment: - Management per ortho, non-operative - Pain meds prn - Follow up Dr. Henriquez outpatient in 1 week - PT following, patient almost back to baseline with mobility (2) BPH (benign prostatic hyperplasia) Comment: - Continue finasteride (3) CAD (coronary artery disease) Comment: - Resume aspirin (4) CKD (chronic kidney disease) stage 3, GFR 30-59 ml/min Current Visit: No Comment: - Creatinine at baseline (5) Elevated troponin Comment: - Trops peaked at 0.04, suspect secondary to demand ischemia with trauma and fall. (6) Type 2 diabetes mellitus Comment: - BGs 230s - Continue Lispro SS. (7) DVT prophylaxis Comment: - SQ heparin. (8) Full code status Status and Disposition: Inpatient. Anticipate discharge to home when medically stable.
--- NOTE | 2018-04-26 14:08 | PN ---
Progress Note - Progress Note Date of Service: 04/26/18 SOAP: Subjective: []Patient seen and examined OOB in chair. He is sitting comfortably and has been ambulating around the unit with a walker without pain. Denies CP, SOB, dizziness. LLE is not painful. Objective: []General: OOB in chair, appears well, NAD LLE: Skin intact, no edema and no obvious deformity. Flexion and extension intact and nonpainful at ankle, knee and hip. DP2+, cap refill less than two seconds distally BL calves supple and nontender without erythema, edema or palpable cords. Assessment: []Left periprosthetic femur fracture Plan: []Trial of nonoperative treatment with protected WB LLE with a walker Continue PT Patient has been ambulating, plans for likely DC tomorrow will obtain new xrays before DC to assess for displacement. F/U in [address] Henriquez Mechanical and chemical DVT prophylaxis Vital Signs Temp 97.7 F 04/26/18 11:54 Pulse 66 04/26/18 11:54 Resp 17 04/26/18 11:54 BP 130/68 04/26/18 11:54 Pulse Ox 98 04/26/18 11:54 Intake & Output 04/25/18 04/26/18 04/26/18 18:59 06:59 18:59 Intake Total 840 500 420 Output Total 1075 950 300 Balance -235 -450 120 Intake: Oral 840 500 420 Output: Urine 1075 950 300 Other: Estimated Stool Amount Large Laboratory Last Values WBC 8.1 10^3/ul (3.5-10.8) 04/24/18 16:45 RBC 4.02 10^6/ul (4.00-5.40) 04/24/18 16:45 Hgb 11.6 g/dl (14.0-18.0) L 04/24/18 16:45 Hct 35 % (42-52) L 04/24/18 16:45 MCV 86 fL (80-94) 04/24/18 16:45 MCH 29 pg (27-31) 04/24/18 16:45 MCHC 34 g/dl (31-36) 04/24/18 16:45 RDW 14 % (10.5-15) 04/24/18 16:45 Plt Count 245 10^3/ul (150-450) 04/24/18 16:45 MPV 7.7 um3 (7.4-10.4) 04/24/18 16:45 Neut % (Auto) 71.1 % (38-83) 04/24/18 16:45 Lymph % (Auto) 18.5 % (25-47) L 04/24/18 16:45 [place] % (Auto) 7.2 % (0-7) H 04/24/18 16:45 Eos % (Auto) 2.0 % (0-6) 04/24/18 16:45 Baso % (Auto) 1.2 % (0-2) 04/24/18 16:45 Absolute Neuts (auto) 5.8 10^3/ul (1.5-7.7) 04/24/18 16:45 Absolute Lymphs (auto) 1.5 10^3/ul (1.0-4.8) 04/24/18 16:45 Absolute Monos (auto) 0.6 10^3/ul (0-0.8) 04/24/18 16:45 Absolute Eos (auto) 0.2 10^3/ul (0-0.6) 04/24/18 16:45 Absolute Basos (auto) 0.1 10^3/ul (0-0.2) 04/24/18 16:45 Absolute Nucleated RBC 0 10^3/ul 04/24/18 16:45 Nucleated RBC % 0.2 04/24/18 16:45 ESR 39 mm/Hr (0-40) 04/24/18 16:45 Sodium 136 mmol/L (135-145) 04/24/18 16:45 Potassium 5.0 mmol/L (3.5-5.0) 04/24/18 16:45 Chloride 102 mmol/L (101-111) 04/24/18 16:45 Carbon Dioxide 30 mmol/L (22-32) 04/24/18 16:45 Anion Gap 4 mmol/L (2-11) 04/24/18 16:45 BUN 29 mg/dL (6-24) H 04/24/18 16:45 Creatinine 1.44 mg/dL (0.67-1.17) H 04/24/18 16:45 Est GFR ( Amer) 55.9 (>60) 04/24/18 16:45 Est GFR (Non-Af Amer) 46.2 (>60) 04/24/18 16:45 BUN/Creatinine Ratio 20.1 (8-20) H 04/24/18 16:45 Glucose 234 mg/dL (70-100) H 04/24/18 16:45 POC Glucose (mg/dL) 232 mg/dL (70-100) H 04/26/18 12:14 Calcium 9.2 mg/dL (8.6-10.3) 04/24/18 16:45 Total Bilirubin 0.40 mg/dL (0.2-1.0) 04/24/18 16:45 AST 21 U/L (13-39) 04/24/18 16:45 ALT 16 U/L (7-52) 04/24/18 16:45 Alkaline Phosphatase 71 U/L (34-104) 04/24/18 16:45 Troponin I 0.03 ng/mL (<0.04) 04/24/18 23:31 C-Reactive Protein 5.65 mg/L (<8.01) 04/24/18 16:45 Total Protein 7.1 g/dL (6.4-8.9) 04/24/18 16:45 Albumin 4.0 g/dL (3.2-5.2) 04/24/18 16:45 Globulin 3.1 g/dL (2-4) 04/24/18 16:45 Albumin/Globulin Ratio 1.3 (1-3) 04/24/18 16:45
[2018-04-26] MEDS: Atorvastatin* 10 MG TAB PO SCH (17:43)
--- NOTE | 2018-04-26 18:54 | RAD ---
INDICATION: Traumatic periprosthetic fracture. COMPARISON: Comparison is made with a prior study from April 24, 2018. TECHNIQUE: 2 views of the left femur were obtained. FINDINGS: The patient is status post total left hip replacement surgery. There is a slightly displaced periprosthetic fracture of the proximal femur which is unchanged from the prior study. There are also surgical plates in the left hemipelvis transfixed with multiple screws. IMPRESSION: SLIGHTLY DISPLACED PERIPROSTHETIC FRACTURE, UNCHANGED.
[2018-04-26] MEDS: Senna TAB PO SCH (20:52)
[2018-04-27] MEDS: Heparin VIAL(*) 5000 UNITS/ML VIAL (FIVE THOUSAND) SUBCUT SCH (05:23)
--- NOTE | 2018-04-27 05:40 | PN ---
Subjective Date of Service: 04/27/18 Interval History: Mr. Diaz denies complaint and is happy with the plan for discharge today. He denies chest pain, SOB, nausea, or abdominal pain. He feels comfortable with the plan for lovenox injections at home for DVT prophylaxis. Objective Active Medications: Acetaminophen (Tylenol Tab*) 650 mg PO Q6H PRN Aspirin (Aspirin 81 Mg Chew Tab*) 81 mg PO DAILY AMAIRANI Atorvastatin Calcium (Lipitor*) 10 mg PO QPM AMAIRANI Cyanocobalamin (Vitamin B12 Tab*) 1,000 mcg PO QAM AMAIRANI Dextrose (D50w Syringe 50 Ml*) 12.5 gm IV PUSH .FOR FS < 60 - SS PRN Docusate Sodium (Colace Cap*) 100 mg PO DAILY PRN Finasteride (Proscar Tab*) 5 mg PO QAM AMAIRANI Heparin Sodium (Porcine) (Heparin Vial(*)) 5,000 units SUBCUT Q8HR AMAIRANI Insulin Human Lispro (Humalog*) 0 units SUBCUT AC AMAIRANI; Protocol Multivitamins/Minerals (Theragran/Minerals Tab*) 1 tab PO QAM AMAIRANI Omeprazole (Prilosec Cap*) 20 mg PO 0730 AMAIRANI Polyethylene Glycol/Electrolytes (Miralax*) 17 gm PO DAILY PRN Propranolol HCl (Inderal Tab*) 20 mg PO BID AMAIRANI Senna (Senokot Tab*) 1 tab PO BEDTIME [facility] Vital Signs: Temp Pulse Resp BP Pulse Ox 98.4 F 64 16 129/53 95 04/27/18 03:28 04/27/18 03:28 04/27/18 03:28 04/27/18 03:28 04/27/18 03:28 Oxygen Devices in Use Now: None Appearance: Male lying in bed in NAD Eyes: No Scleral Icterus Ears/Nose/Mouth/Throat: Mucous Membranes Moist Neck: Trachea Midline Respiratory: Symmetrical Chest Expansion and Respiratory Effort, Clear to Auscultation Cardiovascular: NL Sounds; No Murmurs; No JVD, No Edema Abdominal: NL Sounds; No Tenderness; No Distention Extremities: No Edema Skin: No Rash or Ulcers Neurological: Alert and Oriented x 3, NL Muscle Strength and Tone Nutrition: Taking PO's Result Diagrams: 04/24/18 16:45 04/24/18 16:45 Assess/Plan/Problems-Billing Assessment: Mr. Poyer is an 87 yo male with a hx of CAD with [place], DM, and Left hip ORIF who was admitted on 04/24/18 after a fall with a periprosthetic left hip fracture. - Patient Problems (1) Periprosthetic hip fracture Comment: - Management per ortho, non-operative - Pain meds prn - Follow up Dr. Henriquez outpatient in 1 week - PT states patient is independent with mobility with walker, will have help at home from daughter (2) BPH (benign prostatic hyperplasia) Comment: - Continue finasteride (3) CAD (coronary artery disease) Comment: - Resume aspirin (4) CKD (chronic kidney disease) stage 3, GFR 30-59 ml/min Current Visit: No Comment: - Creatinine at baseline (5) Elevated troponin Comment: - Trops peaked at 0.04, suspect secondary to demand ischemia with trauma and fall. (6) Type 2 diabetes mellitus Comment: - BGs 230s - Resume metformin. (7) DVT prophylaxis Comment: - Lovenox daily until follow up with Dr. Henriquez in one week (8) Full code status Status and Disposition: Inpatient. Discharge to home.
[2018-04-27] MEDS: Omeprazole CAP* 20 MG PO SCH ×2 (07:27→07:29)
[2018-04-27] MEDS: Insulin LISPRO* 1 UNITS UNIT SUBCUT SCH (07:27)
[2018-04-27 08:16] VITALS: BP 125/63
[2018-04-27] MEDS: Propranolol TAB* 10 MG PO SCH (08:21)
[2018-04-27] MEDS: Finasteride TAB* 5 MG PO SCH (08:22)
[2018-04-27] MEDS: Multivitamins/Minerals TAB PO SCH (08:22)
[2018-04-27] MEDS: Aspirin 81 mg CHEW TAB* 81 MG TAB.CHEW PO SCH (08:22)
[2018-04-27] MEDS: Cyanocobalamin TAB* 500 MCG PO SCH (08:22)
--- NOTE | 2018-04-27 13:46 | DS ---
CC: Dr. Dixon; Dr. Henriquez * [facility] MEDICINE DISCHARGE SUMMARY: DATE OF ADMISSION: 04/24/18 DATE OF DISCHARGE: 04/27/18 PRIMARY CARE PHYSICIAN: Dr. Dixon. ORTHOPEDIC SURGEON: Dr. Henriquez. ATTENDING PHYSICIAN: Dr. Lian Brar * (dictation provided by Miguel Ángel Goodrich NP ). PRIMARY DIAGNOSIS: Left hip periprosthetic fracture, nonoperative. SECONDARY DIAGNOSES: 1. History of sick sinus syndrome with pacemaker placement. 2. History of non-insulin dependent type 2 diabetes. 3. Chronic obstructive pulmonary disease. 4. History of coronary artery disease. 5. Nephrolithiasis. 6. Cholelithiasis. 7. Hypertension. 8. Essential tremor. 9. History of benign prostatic hypertrophy. 10. Chronic kidney disease, stage 3, secondary to diabetes. MEDICATIONS: 1. Howes-3 fatty acids 1200 mg p.o. b.i.d. 2. Nitroglycerin 0.4 mg sublingually q.5 minutes p.r.n. 3. Multivitamin with mineral 1 tab p.o. q.a.m. 4. Meloxicam 15 mg p.o. q.a.m. 5. Finasteride 5 mg p.o. q.a.m. 6. Cyanocobalamin 1000 mcg p.o. q.a.m. 7. Acetaminophen 500 mg p.o. q.a.m. 8. Cholecalciferol 2000 units p.o. q.a.m. 9. Aspirin 81 mg p.o. q.p.m. 10. Tylenol 500 mg p.o. at bedtime. 11. Metformin 500 mg p.o. q.p.m. 12. CoQ10 400 mg p.o. q.a.m. 13. Simvastatin 20 mg p.o. q.p.m. 14. Propranolol 20 mg p.o. b.i.d. 15. Omeprazole 20 mg p.o. q.a.m. 16. Senna 1 tab p.o. at bedtime. 17. Enoxaparin 40 mg subcutaneously q.24 hours. HOSPITAL COURSE: Mr. Diaz is an 87-year-old male with a past medical history of a left hip ORIF as well as sick sinus syndrome with pacemaker placement, diabetes, COPD, who presented to the hospital on 04/24/18 after a fall with left hip pain. Please see dictated H and P from myself for complete details. In brief, the patient states he was out walking at [place] in [place], when he stubbed his toe on an uneven sidewalk and fell on the ground on his left side. He states this was purely a mechanical fall. He immediately had pain to his left hip, called EMS to be brought to the emergency room. In the emergency room, he was confirmed to have a periprosthetic fracture to the proximal femur. Mr. Diaz was admitted to the hospital. He had consultation with Dr. Reyes and the team from [facility]. They examined Mr. Diaz and found that despite the fracture he had minimal pain and good range of motion. Plans were for a trial of nonoperative treatment with protected weightbearing to the left lower extremity with a walker and to follow up closely with his orthopedic surgeon, Dr. Henriquez. Mr. Diaz has been doing well. He has been progressing steadily with physical therapy. He is ambulating independently with the use of the walker on the unit including on stairs. Mr. Diaz is medically stable for discharge to home. He will be following with Dr. Henriquez in 1 week and with his primary care physician, Dr. Dixon, within 4 to 7 days. DISPOSITION: To home. DIET: Consistent low carbohydrate. ACTIVITY: Protected weightbearing, left lower extremity, with walker. FOLLOWUP PLANS: 1. Please follow up with Dr. Henriquez within 1 week. 2. Please follow up with Dr. Dixon within 1 to 2 weeks. TIME SPENT: Approximately 60 minutes were spent in the discharge of this patient, more than half the time was spent with the patient at the bedside reviewing the events leading up to and during this hospitalization, performing the physical examination, reviewing my plan of care. MIGUEL ÁNGEL GOODRICH NP [id number]/[facility] #: [id number] JOSE
== END 2018-04-27 11:05 | disposition home health service (06) | DRG 536 ==
LOC: ED 15:10 → SSU 17:20
PROVIDERS: ADMIT Internal Medicine; ATTEND Internal Medicine
DX: S72.002A Fracture of unspecified part of neck of left femur, initial encounter for closed fracture (principal); M97.02XA Periprosthetic fracture around internal prosthetic left hip joint, initial encounter; I25.10 Atherosclerotic heart disease of native coronary artery without angina pectoris; W01.0XXA Fall on same level from slipping, tripping and stumbling without subsequent striking against object, initial encounter; Z96.642 Presence of left artificial hip joint; E11.22 Type 2 diabetes mellitus with diabetic chronic kidney disease; J44.9 Chronic obstructive pulmonary disease, unspecified; I12.9 Hypertensive chronic kidney disease with stage 1 through stage 4 chronic kidney disease, or unspecified chronic kidney disease; G25.0 Essential tremor; N40.0 Benign prostatic hyperplasia without lower urinary tract symptoms; E78.5 Hyperlipidemia, unspecified; R74.8 Abnormal levels of other serum enzymes; D23.9 Other benign neoplasm of skin, unspecified; K21.9 Gastro-esophageal reflux disease without esophagitis; K44.9 Diaphragmatic hernia without obstruction or gangrene; E11.40 Type 2 diabetes mellitus with diabetic neuropathy, unspecified; N18.3 Chronic kidney disease, stage 3 (moderate); L98.499 Non-pressure chronic ulcer of skin of other sites with unspecified severity; K80.20 Calculus of gallbladder without cholecystitis without obstruction; Z95.0 Presence of cardiac pacemaker; I25.2 Old myocardial infarction; Y92.480 Sidewalk as the place of occurrence of the external cause; Z87.442 Personal history of urinary calculi; Z88.0 Allergy status to penicillin; Z82.49 Family history of ischemic heart disease and other diseases of the circulatory system; Z80.1 Family history of malignant neoplasm of trachea, bronchus and lung; Z80.52 Family history of malignant neoplasm of bladder; Z80.0 Family history of malignant neoplasm of digestive organs; Z87.891 Personal history of nicotine dependence; Z86.718 Personal history of other venous thrombosis and embolism; Z87.01 Personal history of pneumonia (recurrent); Z85.828 Personal history of other malignant neoplasm of skin; Z89.029 Acquired absence of unspecified finger(s)
CPT/HCPCS: 36415; 80053; 84484; 85025; 85652; 86140; 93005; 99282; A9270-GY; G8978-GP-CI; G8978-GP-CJ; G8979-GP-CJ; G8980-GP-CJ; J1644